=== PATIENT | male | born 1955 | race Caucasian/White ===

== ENCOUNTER 2020-08-04 09:52 | Outpatient (REF) | payer MEDICARE, SELFPAY ==
--- NOTE | ~2020-08-04 | XR_ITS ---
EXAMINATION: XR LUMBOSACRAL SPINE CLINICAL INFORMATION: Low back pain. COMPARISON: None. TECHNIQUE: 3 views of the lumbosacral spine. FINDINGS: There is normal lumbar lordosis. The vertebral heights and alignment is normal. There is loss of L3-L4 and L5-S1 disc heights. The rest of the disc heights are preserved normal. No lytic or sclerotic process seen. XR/XR lumbar spine 2-3V IMPRESSION: Degenerative L3-L4 and L5-S1 disc changes with mild ventral spondylosis. No visible acute fracture or dislocation seen. No lytic process.
[2020-08-04 10:24] LABS: MANUAL DIFF FLAG NO
[2020-08-04 10:27] LABS: Basophils Percent Auto 0.4 % (0-2); Eosinophils Absolute Auto 0.2 X10*3/uL (0.0-0.4); Eosinophils Percent Auto 2.8 % (0-4); Hematocrit 45.2 % (42-52); Hemoglobin 15.6 g/dl (14.0-18.0); Imm Gran Abs Auto 0.06 X10*3/uL (0.00-0.03); Imm Gran Pct Auto 0.7 % (0.0-0.4); Lymphocytes Absolute Auto 1.8 X10*3/uL (1.2-4.9); Lymphocytes Percent Auto 20.9 % (20-40); Mean Corpuscular HGB Conc 34.5 g/dl (31.0-36.0); Mean Corpuscular Hemoglobin 30.2 pg (27.0-33.0); Mean Corpuscular Volume 87.6 fL (80-98); Mean Platelet Volume 9.3 fL (9.4-12.4); Monocytes Absolute Auto 0.5 X10*3/uL (0.1-1.2); Monocytes Percent Auto 5.3 % (2-11); Neutrophils Percent Auto 69.9 % (45-73); Platelet Count 132 X10*3/uL (160-400); Red Blood Count 5.16 X10*6/uL (4.60-5.80); Red Cell Distribution Width 13.2 % (11.0-16.0); White Blood Count 8.5 X10*3/uL (4.8-10.8)
[2020-08-04 10:38] LABS: Estimated Average Glucose 200 mg/dL; Hemoglobin A1c % 8.6 %
[2020-08-04 10:49] LABS: Alanine Aminotransferase 35 U/L (0-40); Albumin Level 4.4 g/dL (3.5-5.0); Alkaline Phosphatase 81 U/L (39-117); Anion Gap 13 (12-20); Aspartate Amino Transferase 28 U/L (5-37); Blood Urea Nitrogen 19 mg/dL (9-16); C Reactive Protein 0.04 mg/dL (< or = 0.50); Calcium 9.5 mg/dL (8.4-10.2); Carbon Dioxide 28 mmol/L (22-29); Chloride 98 mmol/L (96-108); Estimated Glomerular Filt Rate > 60; Glucose Random 263 mg/dL (60-115); Potassium 3.7 mmol/L (3.3-5.1); Sodium 135 mmol/L (135-145); Total Protein 6.9 g/dL (6.5-8.0)
[2020-08-04 10:50] LABS: Creatinine Urine 90.52 mg/dL; Microalbum/Creatinine Ratio Ur 144.7 ug/mg cr
== END 2020-08-04 09:53 | disposition home or self-care (01) ==
LOC: HO.LAB 09:52
PROVIDERS: PCP Internal Medicine; Visit Provider Internal Medicine
DX: E11.9 Type 2 diabetes mellitus without complications (principal); I10 Essential (primary) hypertension; M54.5 Low back pain
CPT/HCPCS: 36415; 72100; 80053; 82043; 83036; 85025; 86140

== ENCOUNTER 2020-08-24 11:10 | Outpatient (REF) | payer MEDICARE, SELFPAY ==
--- NOTE | ~2020-08-24 | XR_ITS ---
EXAMINATION: XR FOOT, RIGHT CLINICAL INFORMATION: Pain COMPARISON: None TECHNIQUE: AP, lateral, and oblique views of the right foot. FINDINGS: Bone alignment is normal. No fracture or dislocation is seen. Joint spaces are normal. There are calcaneal spurs. There is mild soft tissue arterial calcification. XR/XR foot RT min 3V IMPRESSION: Calcaneal spurs. Mild soft tissue arterial calcification.
== END 2020-08-24 11:11 | disposition home or self-care (01) ==
LOC: HO.XRAY 11:10
PROVIDERS: PCP Internal Medicine; Visit Provider Internal Medicine
DX: M79.671 Pain in right foot (principal)
CPT/HCPCS: 73630

== ENCOUNTER 2020-10-01 10:00 | Outpatient (REF) | payer MEDICARE, SELFPAY ==
[2020-10-01 11:40] LABS: Alanine Aminotransferase 40 U/L (0-40); Albumin Level 4.4 g/dL (3.5-5.0); Alkaline Phosphatase 92 U/L (39-117); Anion Gap 16 (12-20); Aspartate Amino Transferase 32 U/L (5-37); Bilirubin Total 0.9 mg/dL (0.0-1.0); Blood Urea Nitrogen 20 mg/dL (9-16); Calcium 9.9 mg/dL (8.4-10.2); Carbon Dioxide 28 mmol/L (22-29); Chloride 102 mmol/L (96-108); Estimated Glomerular Filt Rate > 60; Glucose Random 189 mg/dL (60-115); Potassium 3.8 mmol/L (3.3-5.1); Sodium 142 mmol/L (135-145)
[2020-10-01 11:51] LABS: Estimated Average Glucose 180 mg/dL; Hemoglobin A1c % 7.9 %
[2020-10-01 11:58] LABS: Vitamin B12 460 pg/mL (200-900)
[2020-10-01 12:04] LABS: Free T4 (Free Thyroxine) 0.84 ng/dL (0.71-1.85); Thyroid Stimulating Hormone 0.41 uIU/mL (0.32-4.0); Vitamin D 25-OH Total 27.4 ng/mL (>30)
== END 2020-10-01 10:01 | disposition home or self-care (01) ==
LOC: HO.LAB 10:00
PROVIDERS: PCP Internal Medicine; Visit Provider Internal Medicine
DX: E11.9 Type 2 diabetes mellitus without complications (principal); I10 Essential (primary) hypertension; R25.1 Tremor, unspecified; D69.6 Thrombocytopenia, unspecified; M79.671 Pain in right foot
CPT/HCPCS: 36415; 80053; 82306; 82607; 83036; 84439; 84443

== ENCOUNTER 2021-01-20 08:07 | Outpatient (REF) | payer MEDICARE, SELFPAY ==
[2021-01-20 08:54] LABS: MANUAL DIFF FLAG NO
[2021-01-20 09:06] LABS: Basophils Percent Auto 0.4 % (0-2); Eosinophils Absolute Auto 0.4 X10*3/uL (0.0-0.4); Eosinophils Percent Auto 4.7 % (0-4); Hematocrit 42.9 % (42-52); Hemoglobin 14.8 g/dl (14.0-18.0); Imm Gran Abs Auto 0.04 X10*3/uL (0.00-0.03); Imm Gran Pct Auto 0.5 % (0.0-0.4); Lymphocytes Absolute Auto 1.7 X10*3/uL (1.2-4.9); Lymphocytes Percent Auto 21.1 % (20-40); Mean Corpuscular HGB Conc 34.5 g/dl (31.0-36.0); Mean Corpuscular Volume 86.8 fL (80-98); Mean Platelet Volume 9.4 fL (9.4-12.4); Monocytes Absolute Auto 0.5 X10*3/uL (0.1-1.2); Monocytes Percent Auto 5.8 % (2-11); Neutrophils Absolute Auto 5.3 X10*3/uL (2.0-8.3); Neutrophils Percent Auto 67.5 % (45-73); Platelet Count 122 X10*3/uL (160-400); Red Blood Count 4.94 X10*6/uL (4.60-5.80); Red Cell Distribution Width 13.3 % (11.0-16.0); White Blood Count 7.9 X10*3/uL (4.8-10.8)
[2021-01-20 09:25] LABS: Estimated Average Glucose 189 mg/dL; Hemoglobin A1c % 8.2 %
[2021-01-20 09:30] LABS: Alanine Aminotransferase 43 U/L (0-40); Albumin Level 4.3 g/dL (3.5-5.0); Alkaline Phosphatase 77 U/L (39-117); Anion Gap 13 (12-20); Aspartate Amino Transferase 39 U/L (5-37); Bilirubin Total 1.1 mg/dL (0.0-1.0); Blood Urea Nitrogen 15 mg/dL (9-16); Calcium 9.3 mg/dL (8.4-10.2); Carbon Dioxide 28 mmol/L (22-29); Chloride 104 mmol/L (96-108); Cholesterol 128 mg/dL; Estimated Glomerular Filt Rate > 60; Glucose Fasting 170 mg/dL (60-99); HDL Cholesterol 30 mg/dL; LDL Cholesterol Calculated 63 mg/dl; Potassium 3.6 mmol/L (3.3-5.1); Sodium 141 mmol/L (135-145); Triglycerides 176 mg/dL
[2021-01-20 09:50] LABS: Prostate Specific Antigen 1.12 ng/mL (<0.05-4.0)
[2021-01-20 10:50] LABS: Glucose Urine UA NEG (NEG); Leukocyte Esterase Urine TRACE (NEG); Nitrite Urine NEG (NEG); PH 6.5 (5.0-8.0); Specific Gravity - Urine 1.015 (1.005-1.025); Urine Blood TRACE (NEG); Urine Ketones NEG (NEG); Urine Protein 1+ MG/DL (NEG-TRACE)
[2021-01-20 10:53] LABS: Appearance Urine CLEAR; Color Urine YELLOW
[2021-01-20 11:23] LABS: Microalbum/Creatinine Ratio Ur 240.3 ug/mg cr; RBC Urine 0-2 /HPF (0)
[2021-01-20 11:24] LABS: Mucus Urine 1+ /LPF
== END 2021-01-20 08:08 | disposition home or self-care (01) ==
LOC: HO.LAB 08:07
PROVIDERS: PCP Internal Medicine; Visit Provider Internal Medicine
DX: I25.10 Atherosclerotic heart disease of native coronary artery without angina pectoris (principal); E11.9 Type 2 diabetes mellitus without complications; I10 Essential (primary) hypertension; E78.00 Pure hypercholesterolemia, unspecified; Z12.5 Encounter for screening for malignant neoplasm of prostate
CPT/HCPCS: 36415; 80053; 80061; 81001; 82043; 83036; 84153; 85025

== ENCOUNTER 2021-07-12 09:39 | Outpatient (REF) | payer MEDICARE, SELFPAY ==
[2021-07-12 10:45] LABS: Alanine Aminotransferase 41 U/L (0-40); Albumin Level 4.2 g/dL (3.5-5.0); Alkaline Phosphatase 95 U/L (39-117); Anion Gap 14 (12-20); Aspartate Amino Transferase 30 U/L (5-37); Bilirubin Total 0.9 mg/dL (0.0-1.0); Blood Urea Nitrogen 16 mg/dL (9-16); Calcium 9.5 mg/dL (8.4-10.2); Carbon Dioxide 29 mmol/L (22-29); Chloride 101 mmol/L (96-108); Estimated Glomerular Filt Rate > 60; Glucose Random 219 mg/dL (60-115); Potassium 3.9 mmol/L (3.3-5.1); Sodium 140 mmol/L (135-145); Total Protein 6.9 g/dL (6.5-8.0)
[2021-07-12 10:49] LABS: Estimated Average Glucose 203 mg/dL; Hemoglobin A1c % 8.7 %
== END 2021-07-12 09:40 | disposition home or self-care (01) ==
LOC: HO.LAB 09:39
PROVIDERS: PCP Internal Medicine; Visit Provider Internal Medicine
DX: I10 Essential (primary) hypertension (principal); E11.9 Type 2 diabetes mellitus without complications
CPT/HCPCS: 36415; 80053; 83036

== ENCOUNTER 2021-10-11 10:40 | Outpatient (REF) | payer MEDICARE, SELFPAY ==
[2021-10-11 11:04] LABS: MANUAL DIFF FLAG NO
[2021-10-11 11:35] LABS: Basophils Percent Auto 0.5 % (0-2); Eosinophils Absolute Auto 0.3 X10*3/uL (0.0-0.4); Hematocrit 43.1 % (42.0-52.0); Hemoglobin 14.9 g/dl (14.0-18.0); Imm Gran Abs Auto 0.07 X10*3/uL (0.00-0.03); Imm Gran Pct Auto 0.8 % (0.0-0.4); Lymphocytes Absolute Auto 1.8 X10*3/uL (1.2-4.9); Lymphocytes Percent Auto 21.6 % (20-40); Mean Corpuscular HGB Conc 34.6 g/dl (31.0-36.0); Mean Corpuscular Volume 86.7 fL (80.0-98.0); Mean Platelet Volume 9.5 fL (9.4-12.4); Monocytes Absolute Auto 0.5 X10*3/uL (0.1-1.2); Monocytes Percent Auto 6.1 % (2-11); Neutrophils Absolute Auto 5.7 x10*3/uL (2.0-8.3); Platelet Count 126 X10*3/uL (160-400); Red Blood Count 4.97 X10*6/uL (4.60-5.80); Red Cell Distribution Width 13.2 % (11.0-16.0); White Blood Count 8.3 X10*3/uL (4.8-10.8)
[2021-10-11 11:59] LABS: Estimated Average Glucose 217 mg/dL; Hemoglobin A1c % 9.2 %
[2021-10-11 12:16] LABS: Alanine Aminotransferase 51 U/L (0-40); Albumin Level 4.1 g/dL (3.5-5.0); Alkaline Phosphatase 87 U/L (39-117); Anion Gap 14 (12-20); Aspartate Amino Transferase 38 U/L (5-37); Bilirubin Total 0.9 mg/dL (0.0-1.0); Blood Urea Nitrogen 14 mg/dL (9-16); Calcium 9.6 mg/dL (8.4-10.2); Carbon Dioxide 26 mmol/L (22-29); Chloride 103 mmol/L (96-108); Estimated Glomerular Filt Rate > 60; Glucose Random 197 mg/dL (60-115); Potassium 3.7 mmol/L (3.3-5.1); Sodium 139 mmol/L (135-145); Total Protein 6.9 g/dL (6.5-8.0)
[2021-10-11 12:40] LABS: Appearance Urine CLEAR; Color Urine YELLOW; Glucose Urine UA NEG (NEG); Leukocyte Esterase Urine NEG (NEG); Nitrite Urine NEG (NEG); Specific Gravity - Urine 1.025 (1.005-1.025); Urine Blood TRACE (NEG); Urine Ketones NEG (NEG); Urine Protein TRACE MG/DL (NEG-TRACE)
[2021-10-11 12:51] LABS: Squamous Epithelial Cell Urine TRACE /LPF
[2021-10-11 13:35] LABS: Creatinine Urine 72.92 mg/dL; Microalbum/Creatinine Ratio Ur 296.2 ug/mg cr
== END 2021-10-11 10:41 | disposition home or self-care (01) ==
LOC: HO.LAB 10:40
PROVIDERS: PCP Internal Medicine; Visit Provider Internal Medicine
DX: E11.9 Type 2 diabetes mellitus without complications (principal); I10 Essential (primary) hypertension; E55.9 Vitamin D deficiency, unspecified
CPT/HCPCS: 36415; 80053; 81001; 82043; 82306; 83036; 85025

== ENCOUNTER 2022-02-01 10:07 | Outpatient (REF) | payer MEDICARE, SELFPAY ==
[2022-02-01 10:30] LABS: MANUAL DIFF FLAG NO
[2022-02-01 10:44] LABS: Basophils Percent Auto 0.5 % (0-2); Eosinophils Absolute Auto 0.4 X10*3/uL (0.0-0.4); Eosinophils Percent Auto 4.6 % (0-4); Hematocrit 41.3 % (42.0-52.0); Hemoglobin 14.6 g/dl (14.0-18.0); Imm Gran Abs Auto 0.05 X10*3/uL (0.00-0.03); Imm Gran Pct Auto 0.6 % (0.0-0.4); Lymphocytes Absolute Auto 1.7 X10*3/uL (1.2-4.9); Lymphocytes Percent Auto 20.6 % (20-40); Mean Corpuscular HGB Conc 35.4 g/dl (31.0-36.0); Mean Corpuscular Hemoglobin 30.4 pg (27.0-33.0); Mean Platelet Volume 9.5 fL (9.4-12.4); Monocytes Absolute Auto 0.4 X10*3/uL (0.1-1.2); Monocytes Percent Auto 5.2 % (2-11); Neutrophils Absolute Auto 5.7 x10*3/uL (2.0-8.3); Neutrophils Percent Auto 68.5 % (45-73); Platelet Count 141 X10*3/uL (160-400); Red Cell Distribution Width 13.2 % (11.0-16.0); White Blood Count 8.3 X10*3/uL (4.8-10.8)
[2022-02-01 10:46] LABS: Estimated Average Glucose 183 mg/dL
[2022-02-01 10:59] LABS: Alanine Aminotransferase 38 U/L (0-40); Albumin Level 4.2 g/dL (3.5-5.0); Alkaline Phosphatase 76 U/L (39-117); Anion Gap 18 (12-20); Aspartate Amino Transferase 33 U/L (5-37); Blood Urea Nitrogen 12 mg/dL (9-16); Calcium 9.5 mg/dL (8.4-10.2); Carbon Dioxide 24 mmol/L (22-29); Chloride 103 mmol/L (96-108); Estimated Glomerular Filt Rate > 60; Glucose Random 196 mg/dL (60-115); Potassium 3.9 mmol/L (3.3-5.1); Sodium 141 mmol/L (135-145); Total Protein 6.7 g/dL (6.5-8.0)
[2022-02-01 15:06] LABS: Creatinine Urine 61.12 mg/dL; Microalbum/Creatinine Ratio Ur 219.2 ug/mg cr
== END 2022-02-01 10:08 | disposition home or self-care (01) ==
LOC: HO.10HDL 10:07
PROVIDERS: Visit Provider Internal Medicine
DX: E11.9 Type 2 diabetes mellitus without complications (principal); I10 Essential (primary) hypertension; R79.89 Other specified abnormal findings of blood chemistry; E55.9 Vitamin D deficiency, unspecified
CPT/HCPCS: 36415; 80053; 82043; 83036; 85025

== ENCOUNTER 2022-07-19 08:03 | Outpatient (REF) | payer MEDICARE, SELFPAY ==
[2022-07-19 10:33] LABS: MANUAL DIFF FLAG NO
[2022-07-19 10:52] LABS: Basophils Absolute Auto 0.1 X10*3/uL (0.0-0.2); Basophils Percent Auto 0.7 % (0-2); Eosinophils Absolute Auto 0.3 X10*3/uL (0.0-0.4); Eosinophils Percent Auto 4.1 % (0-4); Hematocrit 43.2 % (42.0-52.0); Hemoglobin 14.7 g/dl (14.0-18.0); Imm Gran Abs Auto 0.06 X10*3/uL (0.00-0.03); Imm Gran Pct Auto 0.8 % (0.0-0.4); Lymphocytes Absolute Auto 1.8 X10*3/uL (1.2-4.9); Lymphocytes Percent Auto 25.4 % (20-40); Mean Corpuscular Hemoglobin 29.3 pg (27.0-33.0); Mean Corpuscular Volume 86.2 fL (80.0-98.0); Mean Platelet Volume 9.4 fL (9.4-12.4); Monocytes Absolute Auto 0.5 X10*3/uL (0.1-1.2); Monocytes Percent Auto 6.5 % (2-11); Neutrophils Absolute Auto 4.5 x10*3/uL (2.0-8.3); Neutrophils Percent Auto 62.5 % (45-73); Platelet Count 131 X10*3/uL (160-400); Red Blood Count 5.01 X10*6/uL (4.60-5.80); Red Cell Distribution Width 13.2 % (11.0-16.0); White Blood Count 7.2 X10*3/uL (4.8-10.8)
[2022-07-19 10:58] LABS: Estimated Average Glucose 200 mg/dL; Hemoglobin A1c % 8.6 %
[2022-07-19 11:37] LABS: Alanine Aminotransferase 45 U/L (0-40); Albumin Level 4.1 g/dL (3.5-5.0); Alkaline Phosphatase 83 U/L (39-117); Anion Gap 16 (12-20); Aspartate Amino Transferase 29 U/L (5-37); Blood Urea Nitrogen 21 mg/dL (9-16); Calcium 9.1 mg/dL (8.4-10.2); Carbon Dioxide 25 mmol/L (22-29); Chloride 105 mmol/L (96-108); Cholesterol 130 mg/dL; Estimated Glomerular Filt Rate > 60; Glucose Fasting 244 mg/dL (60-99); HDL Cholesterol 30 mg/dL; LDL Cholesterol Calculated 49 mg/dl; Potassium 3.7 mmol/L (3.3-5.1); Sodium 142 mmol/L (135-145); Total Protein 6.4 g/dL (6.5-8.0); Triglycerides 257 mg/dL
[2022-07-19 11:44] LABS: Prostate Specific Antigen Scr 1.22 ng/mL (<0.05-4.0); Vitamin D 25-OH Total 27.3 ng/mL (>30)
[2022-07-19 12:14] LABS: Creatinine Urine 104.16 mg/dL; Microalbum/Creatinine Ratio Ur 129.6 ug/mg cr
== END 2022-07-19 08:04 | disposition home or self-care (01) ==
LOC: HO.10HDL 08:03
PROVIDERS: Visit Provider Internal Medicine
DX: Z00.00 Encounter for general adult medical examination without abnormal findings (principal); E11.9 Type 2 diabetes mellitus without complications; E55.9 Vitamin D deficiency, unspecified; Z12.5 Encounter for screening for malignant neoplasm of prostate
CPT/HCPCS: 36415; 80053; 80061; 82043; 82306; 83036; 84153; 85025

== ENCOUNTER 2022-10-31 08:35 | Outpatient (REF) | payer MEDICARE, SELFPAY ==
[2022-10-31 10:44] LABS: MANUAL DIFF FLAG NO
[2022-10-31 10:52] LABS: Basophils Percent Auto 0.5 % (0-2); Eosinophils Absolute Auto 0.4 X10*3/uL (0.0-0.4); Eosinophils Percent Auto 4.3 % (0-4); Hemoglobin 15.1 g/dl (14.0-18.0); Imm Gran Abs Auto 0.04 X10*3/uL (0.00-0.03); Imm Gran Pct Auto 0.5 % (0.0-0.4); Lymphocytes Absolute Auto 1.8 X10*3/uL (1.2-4.9); Mean Corpuscular HGB Conc 34.3 g/dl (31.0-36.0); Mean Corpuscular Hemoglobin 30.4 pg (27.0-33.0); Mean Corpuscular Volume 88.5 fL (80.0-98.0); Mean Platelet Volume 9.7 fL (9.4-12.4); Monocytes Absolute Auto 0.4 X10*3/uL (0.1-1.2); Monocytes Percent Auto 5.3 % (2-11); Neutrophils Absolute Auto 5.5 x10*3/uL (2.0-8.3); Neutrophils Percent Auto 67.4 % (45-73); Platelet Count 128 X10*3/uL (160-400); Red Blood Count 4.97 X10*6/uL (4.60-5.80); Red Cell Distribution Width 13.3 % (11.0-16.0); White Blood Count 8.2 X10*3/uL (4.8-10.8)
[2022-10-31 11:01] LABS: Estimated Average Glucose 154 mg/dL
[2022-10-31 11:02] LABS: Alanine Aminotransferase 34 U/L (0-40); Albumin Level 4.1 g/dL (3.5-5.0); Alkaline Phosphatase 74 U/L (39-117); Anion Gap 14 (12-20); Aspartate Amino Transferase 24 U/L (5-37); Bilirubin Total 1.1 mg/dL (0.0-1.0); Blood Urea Nitrogen 16 mg/dL (9-16); Calcium 9.5 mg/dL (8.4-10.2); Carbon Dioxide 26 mmol/L (22-29); Chloride 104 mmol/L (96-108); Estimated Glomerular Filt Rate > 60; Glucose Random 172 mg/dL (60-115); Potassium 3.6 mmol/L (3.3-5.1); Sodium 140 mmol/L (135-145); Total Protein 6.9 g/dL (6.5-8.0)
== END 2022-10-31 08:36 | disposition home or self-care (01) ==
LOC: HO.10HDL 08:35
PROVIDERS: Visit Provider Internal Medicine
DX: E11.9 Type 2 diabetes mellitus without complications (principal); I10 Essential (primary) hypertension; G47.33 Obstructive sleep apnea (adult) (pediatric)
CPT/HCPCS: 36415; 80053; 83036; 85025

== ENCOUNTER 2023-02-15 09:34 | Outpatient (REF) | payer MEDICARE, SELFPAY ==
[2023-02-15 11:25] LABS: Estimated Average Glucose 160 mg/dL; Hemoglobin A1c % 7.2 % (<6.0)
[2023-02-15 11:27] LABS: Alanine Aminotransferase 31 U/L (0-40); Albumin Level 4.3 g/dL (3.5-5.0); Alkaline Phosphatase 66 U/L (39-117); Anion Gap 14 (12-20); Aspartate Amino Transferase 25 U/L (5-37); Blood Urea Nitrogen 16 mg/dL (9-16); Calcium 9.8 mg/dL (8.4-10.2); Carbon Dioxide 28 mmol/L (22-29); Chloride 105 mmol/L (96-108); Estimated Glomerular Filt Rate > 60; Glucose Random 144 mg/dL (60-115); Potassium 3.5 mmol/L (3.3-5.1); Sodium 143 mmol/L (135-145); Total Protein 6.9 g/dL (6.5-8.0)
[2023-02-15 11:29] LABS: Creatinine Urine 99.48 mg/dL; Microalbum/Creatinine Ratio Ur 105.5 ug/mg cr (<30)
[2023-02-15 11:31] LABS: Vitamin D 25-OH Total 61.9 ng/mL (>30)
== END 2023-02-15 09:35 | disposition home or self-care (01) ==
LOC: HO.10HDL 09:34
PROVIDERS: Visit Provider Internal Medicine
DX: E55.9 Vitamin D deficiency, unspecified (principal); G47.33 Obstructive sleep apnea (adult) (pediatric); I25.10 Atherosclerotic heart disease of native coronary artery without angina pectoris; I10 Essential (primary) hypertension; E11.9 Type 2 diabetes mellitus without complications; Z79.4 Long term (current) use of insulin
CPT/HCPCS: 36415; 80053; 82043; 82306; 82570; 83036

== ENCOUNTER 2023-08-07 08:07 | Outpatient (REF) | payer MEDICARE, SELFPAY ==
[2023-08-07 11:18] LABS: Appearance Urine Clear; Color Urine Yellow; Glucose Urine UA Negative (Negative); Leukocyte Esterase Urine Moderate (2+) (Negative); Nitrite Urine Negative (Negative); PH 6.5 (5.0-9.0); Specific Gravity - Urine 1.025 (1.005-1.025); UMIC TRIGGER UA YES; Urine Blood Negative (Negative); Urine Ketones Negative (Negative); Urine Protein 30 (1+) mg/dL (Neg-Trace)
[2023-08-07 11:19] LABS: MANUAL DIFF FLAG NO
[2023-08-07 11:24] LABS: Bacteria Urine None Seen (None Seen); Basophils Percent Auto 0.6 % (0-2); Eosinophils Absolute Auto 0.3 X10*3/uL (0.0-0.4); Eosinophils Percent Auto 3.8 % (0-4); Hematocrit 41.6 % (42.0-52.0); Hemoglobin 14.4 g/dl (14.0-18.0); Imm Gran Abs Auto 0.06 X10*3/uL (0.00-0.03); Imm Gran Pct Auto 0.8 % (0.0-0.4); Lymphocytes Absolute Auto 1.7 X10*3/uL (1.2-4.9); Lymphocytes Percent Auto 24.4 % (20-40); Mean Corpuscular HGB Conc 34.6 g/dl (31.0-36.0); Mean Corpuscular Hemoglobin 29.7 pg (27.0-33.0); Mean Corpuscular Volume 85.8 fL (80.0-98.0); Mean Platelet Volume 9.6 fL (9.4-12.4); Monocytes Absolute Auto 0.5 X10*3/uL (0.1-1.2); Monocytes Percent Auto 7.3 % (2-11); Neutrophils Absolute Auto 4.5 x10*3/uL (2.0-8.3); Neutrophils Percent Auto 63.1 % (45-73); Platelet Count 129 X10*3/uL (160-400); RBC Urine 0-2 /HPF (0-2); Red Blood Count 4.85 X10*6/uL (4.60-5.80); Red Cell Distribution Width 13.2 % (11.0-16.0); Squamous Epithelial Cell Urine 0-2 /HPF (0-2); WBC Urine >50 /HPF (0-5); White Blood Count 7.1 X10*3/uL (4.8-10.8)
[2023-08-07 11:36] LABS: Estimated Average Glucose 151 mg/dL; Hemoglobin A1c % 6.9 % (<6.0)
[2023-08-07 12:15] LABS: Prostate Specific Antigen Scr 1.75 ng/mL (<0.05-4.0)
[2023-08-07 12:26] LABS: Creatinine Urine 213.78 mg/dL; Microalbum/Creatinine Ratio Ur 91.2 ug/mg cr (<30)
[2023-08-07 12:31] LABS: Alanine Aminotransferase 19 U/L (0-40); Albumin Level 4.3 g/dL (3.5-5.0); Alkaline Phosphatase 64 U/L (39-117); Anion Gap 13 (12-20); Aspartate Amino Transferase 18 U/L (5-37); Bilirubin Total 0.8 mg/dL (0.0-1.0); Blood Urea Nitrogen 20 mg/dL (9-16); Calcium 9.8 mg/dL (8.4-10.2); Carbon Dioxide 30 mmol/L (22-29); Chloride 101 mmol/L (96-108); Cholesterol 125 mg/dL (<200); Estimated Glomerular Filt Rate > 60; Glucose Fasting 137 mg/dL (60-99); HDL Cholesterol 26 mg/dL (>40); LDL Cholesterol Calculated 62 mg/dL (<100); Potassium 3.6 mmol/L (3.3-5.1); Sodium 140 mmol/L (135-145); Total Protein 7.1 g/dL (6.5-8.0); Triglycerides 189 mg/dL (<150)
== END 2023-08-07 08:08 | disposition home or self-care (01) ==
LOC: HO.10HDL 08:07
PROVIDERS: Visit Provider Internal Medicine
DX: Z12.5 Encounter for screening for malignant neoplasm of prostate (principal); I25.10 Atherosclerotic heart disease of native coronary artery without angina pectoris; I10 Essential (primary) hypertension; E11.9 Type 2 diabetes mellitus without complications; E78.00 Pure hypercholesterolemia, unspecified; R35.1 Nocturia
CPT/HCPCS: 36415; 80053; 80061; 81001; 81003; 82043; 82570; 83036; 84153; 85025

== ENCOUNTER 2023-09-23 16:17 | Emergency (ER) | payer MEDICARE, SELFPAY ==
[2023-09-23] VITALS (13 sets, daily range): BP systolic 114–223; BP diastolic 58–142; PULSE 60–90; RESP 16–36; TEMP -17.7–37.1; O2SAT 87–95; BMI 38.1; BMI 37.5
--- NOTE | ~2023-09-23 | CT_ITS ---
EXAMINATION: CT ANGIOGRAM OF THE CHEST WITH AND WITHOUT CONTRAST (CT PULMONARY ANGIOGRAM FOR PE) CLINICAL INFORMATION: Reason for Exam hypoxia/alveoloar hge COMPARISON: Chest radiograph 09/23/2023 TECHNIQUE: Prior to contrast administration, noncontrast localization images were obtained. Subsequently, multidetector volumetric imaging was performed from the thoracic inlet to below the diaphragms following the administration of 80 mL Omnipaque 350 intravenous contrast. No contrast reaction reported Sagittal, coronal, and MIP oblique sagittal reformatted images were obtained on the CT workstation, uploaded to PACS, and reviewed. This CT examination was performed using dose optimization techniques as appropriate, variously including the following: *Automated exposure control *Adjustment of mA and/or kV according to patient size (this includes techniques or standardized protocols for targeted exams where dose is matched to indication/reason for exam; i.e. extremities or head) *Use of iterative reconstruction technique Total exam dose-length product 549 mGy-cm FINDINGS: QUALITY OF STUDY/CONTRAST BOLUS: Satisfactory. Marked respiratory artifact is present, especially at the lung bases degrading the diagnostic detail PULMONARY ARTERIES: No central or large segmental pulmonary emboli. THORACIC AORTA: No aneurysm. LUNG: Dependent and perihilar increased interstitial markings are present with bibasilar atelectasis. No suspicious lung masses are seen. PLEURA: Tiny right effusion and trace left effusion. MEDIASTINUM: There is cardiomegaly. No pericardial effusion. No hilar or mediastinal lymphadenopathy. No evidence of septal bowing or right heart strain. CORONARY ARTERY CALCIFICATION: Moderate calcium is present along with probable coronary stents. CHEST WALL/AXILLA: No axillary or internal mammary lymphadenopathy. OSSEOUS STRUCTURES: No acute or suspicious osseous abnormality. UPPER ABDOMEN: Unremarkable. No reflux of contrast into the hepatic veins to suggest elevated right heart pressures. CT/CT angio chest PE protocol IMPRESSION: 1. No evidence of pulmonary emboli. 2. Cardiomegaly increased interstitial markings with tiny right and trace left pleural effusions. Findings suggest CHF. Superimposed pneumonia cannot be entirely excluded. VTE: negative.
--- NOTE | ~2023-09-23 | XR_ITS ---
EXAMINATION: XR CHEST CLINICAL INFORMATION: Chest COMPARISON: None available. TECHNIQUE: Frontal view of the chest was obtained. FINDINGS: There are patchy airspace disease seen bilaterally more prominent in the lower lobes, most likely due to infectious to large airspace disease. There is no pleural effusion. Cardiomediastinal silhouette is normal. XR/XR chest 1V IMPRESSION: Multifocal pneumonia
--- NOTE | 2023-09-23 16:24 | ECG_ITS ---
Test Reason : CP Blood Pressure : / mmHG Vent. Rate : 083 BPM Atrial Rate : 083 BPM P-R Int : 234 ms QRS Dur : 148 ms QT Int : 456 ms P-R-T Axes : 000 -12 188 degrees QTc Int : 535 ms Sinus rhythm with 1st degree A-V block with Fusion complexes Right bundle branch block Marked ST abnormality, possible anterior subendocardial injury Abnormal ECG No previous ECGs available Referred By: Generic ED Physician Electronically Signed By:ARSALAN KESSLER MD
--- NOTE | 2023-09-23 16:30 | MHC.EDTECH ---
Waiting for call back from [facility]
--- NOTE | 2023-09-23 16:31 | ED.CHESTPAIN ---
HPI - Chest Pain General Chief Complaint: Dyspnea Stated Complaint: respiratory distress, unresponsive, cpap no change Time Seen by Provider: 09/23/23 16:26 Source: patient and EMS Mode of arrival: EMS Limitations: no limitations History of Present Illness HPI narrative: Patient with history of hypertension coronary artery disease status post stent placement 2011, hypertension, high cholesterol, diabetes, sleep apnea on CPAP was admitted in good health around 15:00 start coughing with severe shortness of breath with chest discomfort coughed several times fresh blood in the sputum became unresponsive was saturating 70% at room air placed on CPAP improved to 87% became more responsive oriented to self and place reporting chest tightness POC on arrival was 292 patient is not on any anticoagulants no fever no chills patient does have leg edema for some time Related Data Allergies Allergy/AdvReac Type Severity Reaction Status Date / Time No Known Allergies Allergy Verified 09/23/23 16:28 [No Known Allergies*] Review of Systems Review of Systems: Yes all other systems are reviewed and are negative PMFSH Past Medical History Medical History Sleep apnea Hyperlipemia HTN (hypertension) Diabetes mellitus CAD (coronary artery disease) Surgical History H/O heart artery stent Social History Social History Smoked in Last 30 Days: No Use of substances other than those prescribed or required for medical reasons: No Advance Directives: No Advance Directives Information Provided: No Physical Exam Vital Signs: Vital Signs: Last Vital Signs Temp 0 F L 09/23/23 23:41 Pulse 90 09/23/23 23:41 Resp 24 H 09/23/23 23:41 BP 159/80 H 09/23/23 23:41 Pulse Ox 94 09/23/23 23:41 O2 Del Method Nasal Cannula 09/23/23 23:41 O2 Flow Rate 4 09/23/23 23:41 Oxygen Flow Rate 55 09/23/23 16:22 BMI result Body Mass Index 37.5 Appearance: Alert. Oriented X2-3. In moderate respiratory distress on high-flow Eyes: No pallor or icterus ENT: Pharynx normal. Oral Mucosa moist Neck: Normal inspection. Neck supple. CVS: Normal heart rate and rhythm. Pulses normal. Respiratory: Moderate respiratory distress. Equal air entry bilateral, bilateral conducted sounds Abdomen: Soft and nontender. Bowel sounds are present, no mass palpable, no CVA tenderness Skin: Skin warm and dry. Normal skin color. Normal skin turgor. Extremities:++ lower extremity edema. No calf tenderness Neuro: Oriented X . No motor deficit. Medications Administered Generic Name Dose Route Start Last Admin Trade Name Freq PRN Reason Stop Dose Admin Heparin Sodium/Sodium Chloride 25,000 unit in 250 mls @ 0 mls/hr 09/23/23 21:45 09/23/23 22:10 Heparin Sodium,Porcine/1/2ns IVCONT 8.68 units/kg/hr .Q0M TERRI 10 mls/hr Administration Protocol Per Protocol Nitroglycerin 0.4 mg 09/23/23 16:32 09/23/23 16:37 Nitroglycerin 0.4 Mg Tab.Subl SUBLINGUAL 0.4 mg [id number] PRN Administration Chest Pain Discontinued Medications Generic Name Dose Route Start Last Admin Trade Name Freq PRN Reason Stop Dose Admin Furosemide 40 mg 09/23/23 16:27 09/23/23 16:33 Furosemide 40 Mg/4 Ml Vial IVPUSH 09/23/23 16:28 40 mg ONCE ONE Administration Protocol Heparin Sodium (Porcine) 5,000 unit 09/23/23 21:28 09/23/23 22:15 Heparin Sodium,Porcine 5,000 Unit/Ml Vial IVPUSH 09/23/23 21:29 5,000 unit ONCE ONE Administration Piperacillin Sod/Tazobactam 50 mls @ 100 mls/hr 09/23/23 19:41 09/23/23 21:42 Sod 3.375 gm/ Sodium Chloride IV 09/23/23 20:10 Infused ONCE ONE Infusion Iohexol 85 ml 09/23/23 18:39 09/23/23 18:39 Iohexol 350 Mg/Ml 100 Ml Infus..Btl IV 09/23/23 18:40 85 ml ONCE ONE Administration Labetalol HCl 20 mg 09/23/23 16:41 09/23/23 16:46 Labetalol Hcl 100 Mg/20 Ml Vial IVPUSH 09/23/23 16:42 20 mg ONCE ONE Administration Ondansetron HCl 4 mg 09/23/23 16:32 09/23/23 16:38 Ondansetron Hcl 4 Mg/2 Ml Vial IVPUSH 09/23/23 16:33 4 mg ONCE ONE Administration Ondansetron HCl 4 mg 09/23/23 17:50 09/23/23 17:53 Ondansetron Hcl 4 Mg/2 Ml Vial IVPUSH 09/23/23 17:51 4 mg ONCE ONE Administration Prochlorperazine Edisylate 10 mg 09/23/23 18:22 09/23/23 18:26 Prochlorperazine Edisylate 10 Mg/2 Ml Vial IVPUSH 09/23/23 18:23 10 mg ONCE ONE Administration Medical Decision Making Medical Decision Making [facility] Narrative: Patient with hypertension with coronary artery disease status post stent placement comes here for acute shortness of breath with cough with hemoptysis desaturated to 70% with altered sensorium improved after CPAP clinically have a picture of pulmonary edema initial BNP was 47 and troponin was 81.5 repeat troponin in 4 hours is [address] depression in inferior leads and anterior leads on arrival patient's blood pressure was elevated to 223/170 in responded to IV Lasix and labetalol and nitroglycerin, patient denied any chest pain after arrival at this time patient is saturating 93% on 4 L. case discussed with Dr. Reid patient care technician instructor who looked at the cardiogram suspect subendocardial ischemia with acute pulmonary edema requested to transfer to [facility] for possible catheterization in a.m. started on heparin drip patient denies any chest pain blood pressure 171/82 pulse rate 71 Differential Diagnosis Differential Diagnoses: The differential diagnosis associated with the presentation includes Alveolar hemorrhage/COPD/pneumonia/CHF/acute pulmonary edema Consult Healthcare Provider Management of the patient was discussed with: [employer] [facility] Dr. Reid Lab Data [facility] Lab Attestation statement: I reviewed the patient's lab results. 09/23/23 16:32 09/23/23 16:55 Labs: Lab Results 09/23/23 09/23/23 09/23/23 Range/Units 16:22 16:32 16:55 WBC 8.4 (4.8-10.8) X10*3/uL RBC 5.26 (4.60-5.80) X10*6/uL Hgb 15.4 (14.0-18.0) g/dl Hct 46.0 (42.0-52.0) % MCV 87.5 (80.0-98.0) fL MCH 29.3 (27.0-33.0) pg MCHC 33.5 (31.0-36.0) g/dl RDW 13.7 (11.0-16.0) % Plt Count 135 L (160-400) X10*3/uL MPV 10.3 (9.4-12.4) fL Immature Gran % (Auto) 1.3 H (0.0-0.4) % Neut % (Auto) 64.7 (45-73) % Lymph % (Auto) 21.0 (20-40) % Tyrrell % (Auto) 5.0 (2-11) % Eos % (Auto) 7.4 H (0-4) % Baso % (Auto) 0.6 (0-2) % Lymph # (Auto) 1.8 (1.2-4.9) X10*3/uL Tyrrell # (Auto) 0.4 (0.1-1.2) X10*3/uL Eos # (Auto) 0.6 H (0.0-0.4) X10*3/uL Baso # (Auto) 0.1 (0.0-0.2) X10*3/uL Abs Immat Gran (auto) 0.11 H (0.00-0.03) X10*3/uL Absolute Neuts (auto) 5.5 (2.0-8.3) x10*3/uL Absolute Nucleated RBC 0.000 (0.0-0.012) X10*3/uL Nucleated RBC % (auto) 0.0 (0.0-0.2) /100WBC PT 10.5 L (11.1-13.3) SEC INR 0.9 (0.9-1.1) APTT 24.9 L (26.0-36.8) SEC VBG pH (7.32-7.43) VBG pCO2 mmHg VBG pO2 mmHg VBG HCO3 (22-26) mmol/L VBG O2 Saturation % VBG Base Excess mmol/L Sodium 140 (135-145) mmol/L Potassium 3.6 (3.3-5.1) mmol/L Chloride 102 (96-108) mmol/L Carbon Dioxide 25 (22-29) mmol/L Anion Gap 17 (12-20) BUN 23 H (9-16) mg/dL Creatinine 1.16 (0.5-1.4) mg/dL Estim Creat Clear Calc 74.7 Estimated GFR > 60 POC Glucose 292 H (60-115) mg/dL Random Glucose 293 H (60-115) mg/dL Lactic Acid (0.5-2.0) mmol/L Calcium 9.1 D (8.4-10.2) mg/dL Magnesium 1.9 (1.6-2.6) mg/dL Total Bilirubin 0.6 (0.0-1.0) mg/dL AST 33 (5-37) U/L ALT 31 (0-40) U/L Alkaline Phosphatase 66 (39-117) U/L Troponin I High Sens 81.5 H (<3.5-35.0) ng/L B-Natriuretic Peptide 47 (<100) pg/mL Total Protein 7.1 (6.5-8.0) g/dL Albumin 4.0 (3.5-5.0) g/dL Influenza Type A (PCR) (Negative) Influenza Type B (PCR) (Negative) RSV RNA Qual (PCR) (Negative) SARS-CoV-2 RNA (RT-PCR) (Negative) 09/23/23 09/23/23 09/23/23 Range/Units 17:13 17:14 20:18 WBC (4.8-10.8) X10*3/uL RBC (4.60-5.80) X10*6/uL Hgb (14.0-18.0) g/dl Hct (42.0-52.0) % MCV (80.0-98.0) fL MCH (27.0-33.0) pg MCHC (31.0-36.0) g/dl RDW (11.0-16.0) % Plt Count (160-400) X10*3/uL MPV (9.4-12.4) fL Immature Gran % (Auto) (0.0-0.4) % Neut % (Auto) (45-73) % Lymph % (Auto) (20-40) % Tyrrell % (Auto) (2-11) % Eos % (Auto) (0-4) % Baso % (Auto) (0-2) % Lymph # (Auto) (1.2-4.9) X10*3/uL Tyrrell # (Auto) (0.1-1.2) X10*3/uL Eos # (Auto) (0.0-0.4) X10*3/uL Baso # (Auto) (0.0-0.2) X10*3/uL Abs Immat Gran (auto) (0.00-0.03) X10*3/uL Absolute Neuts (auto) (2.0-8.3) x10*3/uL Absolute Nucleated RBC (0.0-0.012) X10*3/uL Nucleated RBC % (auto) (0.0-0.2) /100WBC PT (11.1-13.3) SEC INR (0.9-1.1) APTT (26.0-36.8) SEC VBG pH 7.41 (7.32-7.43) VBG pCO2 40 mmHg VBG pO2 66 mmHg VBG HCO3 25 (22-26) mmol/L VBG O2 Saturation 92.0 % VBG Base Excess 1.0 mmol/L Sodium (135-145) mmol/L Potassium (3.3-5.1) mmol/L Chloride (96-108) mmol/L Carbon Dioxide (22-29) mmol/L Anion Gap (12-20) BUN (9-16) mg/dL Creatinine (0.5-1.4) mg/dL Estim Creat Clear Calc Estimated GFR POC Glucose (60-115) mg/dL Random Glucose (60-115) mg/dL Lactic Acid 2.7 H* (0.5-2.0) mmol/L Calcium (8.4-10.2) mg/dL Magnesium (1.6-2.6) mg/dL Total Bilirubin (0.0-1.0) mg/dL AST (5-37) U/L ALT (0-40) U/L Alkaline Phosphatase (39-117) U/L Troponin I High Sens 1725.5 H* D (<3.5-35.0) ng/L B-Natriuretic Peptide (<100) pg/mL Total Protein (6.5-8.0) g/dL Albumin (3.5-5.0) g/dL Influenza Type A (PCR) NEGATIVE (Negative) Influenza Type B (PCR) NEGATIVE (Negative) RSV RNA Qual (PCR) NEGATIVE (Negative) SARS-CoV-2 RNA (RT-PCR) NEGATIVE (Negative) Independent Interpretation I performed an independent interpretation of an: EKG, Plain X-Ray and CT Scan Interpretation: Normal sinus rhythm ventricular rate 83 beats per minute with ST depression in V1 V2 V3 V4 lead 2 with slight coving of ST segment in lead 3 and AVF. Impression inferolateral ischemia Radiology Impression Discussion of test interpretation with radiology: I have reviewed the radiologist's reading. Radiologist Impression: [facility] [address] [place] [address] CT Scan Report Signed Patient: Jose J Pinto MR#: [id number] : 1955 Acct:[id number] Age/Sex: 68 / M ADM Date: 09/23/23 Loc: [facility] [address] [place] [address] XRay Report Signed Patient: Jose J Pinto MR#: [id number] : 1955 Acct:[id number] Age/Sex: 68 / M ADM Date: 09/23/23 Loc: [facility] Attending Dr: Ordering Physician: Bienvenido Warner MD Date of Service: 09/23/23 Procedure(s): XR chest 1V Accession Number(s): [id number] cc: Jairo Lacey MD; Bienvenido Warner MD~ EXAMINATION: XR CHEST CLINICAL INFORMATION: Chest COMPARISON: None available. TECHNIQUE: Frontal view of the chest was obtained. FINDINGS: There are patchy airspace disease seen bilaterally more prominent in the lower lobes, most likely due to infectious to large airspace disease. There is no pleural effusion. Cardiomediastinal silhouette is normal. XR/XR chest 1V IMPRESSION: Multifocal pneumonia Attending Dr: Ordering Physician: Bienvenido Warner MD Date of Service: 09/23/23 Procedure(s): CT angio chest PE protocol Accession Number(s): [id number] cc: Jairo Lacey MD; Bienvenido Warner MD~ EXAMINATION: CT ANGIOGRAM OF THE CHEST WITH AND WITHOUT CONTRAST (CT PULMONARY ANGIOGRAM FOR PE) CLINICAL INFORMATION: Reason for Exam hypoxia/alveoloar hge COMPARISON: Chest radiograph 09/23/2023 TECHNIQUE: Prior to contrast administration, noncontrast localization images were obtained. Subsequently, multidetector volumetric imaging was performed from the thoracic inlet to below the diaphragms following the administration of 80 mL Omnipaque 350 intravenous contrast. No contrast reaction reported Sagittal, coronal, and MIP oblique sagittal reformatted images were obtained on the CT workstation, uploaded to PACS, and reviewed. This CT examination was performed using dose optimization techniques as appropriate, variously including the following: *Automated exposure control *Adjustment of mA and/or kV according to patient size (this includes techniques or standardized protocols for targeted exams where dose is matched to indication/reason for exam; i.e. extremities or head) *Use of iterative reconstruction technique Total exam dose-length product 549 mGy-cm FINDINGS: QUALITY OF STUDY/CONTRAST BOLUS: Satisfactory. Marked respiratory artifact is present, especially at the lung bases degrading the diagnostic detail PULMONARY ARTERIES: No central or large segmental pulmonary emboli. THORACIC AORTA: No aneurysm. LUNG: Dependent and perihilar increased interstitial markings are present with bibasilar atelectasis. No suspicious lung masses are seen. PLEURA: Tiny right effusion and trace left effusion. MEDIASTINUM: There is cardiomegaly. No pericardial effusion. No hilar or mediastinal lymphadenopathy. No evidence of septal bowing or right heart strain. CORONARY ARTERY CALCIFICATION: Moderate calcium is present along with probable coronary stents. CHEST WALL/AXILLA: No axillary or internal mammary lymphadenopathy. OSSEOUS STRUCTURES: No acute or suspicious osseous abnormality. UPPER ABDOMEN: Unremarkable. No reflux of contrast into the hepatic veins to suggest elevated right heart pressures. CT/CT angio chest PE protocol IMPRESSION: 1. No evidence of pulmonary emboli. 2. Cardiomegaly increased interstitial markings with tiny right and trace left pleural effusions. Findings suggest CHF. Superimposed pneumonia cannot be entirely excluded. VTE: negative. Critical Care Time Critical Care Time Critical Care Time: Yes Total Critical Care Time: 90 Attestation: The patient was critically ill with a high probability of imminent or life threatening deterioration. I spent greater than 100???minutes of discontinuous time evaluating the patient,delivering critical care at the bedside, discussing and evaluating pertinent data with consultants. Critical care time does not include time spent performing separately billable procedures or teaching. Total time spent performing critical care was 90???minutes. Discharge Plan Discharge Clinical Impression: Non-ST elevated myocardial infarction (non-STEMI), Acute cardiac pulmonary edema, Accelerated hypertension Patient Disposition: [facility] Transfer Details: Transferred to [facility] for acute pulmonary edema and accelerated hypertension with non-STEMI Interventions: Acute Care Transfer Worksheet (ED) Last Done: 09/23/23 23:41 Print Language: Japanese
[2023-09-23] MEDS: Furosemide 40 MG/4 ML VIAL IVPUSH (16:33)
[2023-09-23 16:36] LABS: Glucose, Whole Blood 292 mg/dL (60-115)
[2023-09-23 16:36] LABS: MANUAL DIFF FLAG NO
[2023-09-23] MEDS: Nitroglycerin 0.4 MG TAB.SUBL SUBLINGUAL (16:37)
[2023-09-23] MEDS: ondansetron HCL 4 MG/2 ML VIAL IVPUSH ×2 (16:38→17:53)
[2023-09-23] MEDS: Labetalol HCL 100 MG/20 ML VIAL 20 MG IVPUSH (16:46)
[2023-09-23 17:00] LABS: Basophils Absolute Auto 0.1 X10*3/uL (0.0-0.2); Basophils Percent Auto 0.6 % (0-2); Eosinophils Absolute Auto 0.6 X10*3/uL (0.0-0.4); Eosinophils Percent Auto 7.4 % (0-4); Hemoglobin 15.4 g/dl (14.0-18.0); Imm Gran Abs Auto 0.11 X10*3/uL (0.00-0.03); Imm Gran Pct Auto 1.3 % (0.0-0.4); Lymphocytes Absolute Auto 1.8 X10*3/uL (1.2-4.9); Mean Corpuscular HGB Conc 33.5 g/dl (31.0-36.0); Mean Corpuscular Hemoglobin 29.3 pg (27.0-33.0); Mean Corpuscular Volume 87.5 fL (80.0-98.0); Mean Platelet Volume 10.3 fL (9.4-12.4); Monocytes Absolute Auto 0.4 X10*3/uL (0.1-1.2); Neutrophils Absolute Auto 5.5 x10*3/uL (2.0-8.3); Neutrophils Percent Auto 64.7 % (45-73); Platelet Count 135 X10*3/uL (160-400); Red Blood Count 5.26 X10*6/uL (4.60-5.80); Red Cell Distribution Width 13.7 % (11.0-16.0); White Blood Count 8.4 X10*3/uL (4.8-10.8)
[2023-09-23 17:01] LABS: B Type Natriuretic Peptide 47 pg/mL (<100)
[2023-09-23 17:06] LABS: INTERNATIONAL NORM RATIO 0.9 (0.9-1.1); Prothrombin Time 10.5 SEC (11.1-13.3)
[2023-09-23 17:09] LABS: Partial Thromboplastin Time 24.9 SEC (26.0-36.8)
--- NOTE | 2023-09-23 17:15 | PC.NURSE ---
dr moreno made aware of bp down to 114/62 after med administration. pt had episode of bradycardia 37 BPM no new order per
[2023-09-23 17:20] LABS: VBG HCO3 25 mmol/L (22-26); VBG pCO2 40 mmHg; VBG pH 7.41 (7.32-7.43); VBG pO2 66 mmHg
[2023-09-23 17:21] LABS: Venous Blood Gas Refer to POC result
[2023-09-23 17:28] LABS: Alanine Aminotransferase 31 U/L (0-40); Alkaline Phosphatase 66 U/L (39-117); Anion Gap 17 (12-20); Aspartate Amino Transferase 33 U/L (5-37); Bilirubin Total 0.6 mg/dL (0.0-1.0); Blood Urea Nitrogen 23 mg/dL (9-16); Calcium 9.1 mg/dL (8.4-10.2); Carbon Dioxide 25 mmol/L (22-29); Chloride 102 mmol/L (96-108); Creatinine Clr Calc Pharmacy 74.7; Estimated Glomerular Filt Rate > 60; Glucose Random 293 mg/dL (60-115); Magnesium 1.9 mg/dL (1.6-2.6); Potassium 3.6 mmol/L (3.3-5.1); Sodium 140 mmol/L (135-145); Total Protein 7.1 g/dL (6.5-8.0)
[2023-09-23 17:37] LABS: Troponin-I High Sensitivity 81.5 ng/L (<3.5-35.0)
--- NOTE | 2023-09-23 17:42 | PC.NURSE ---
this rn assumed care of pt from ems @ 7232. pt responsive to voice and pain. pt a & o x4. ekg obtained pt placed on monitor bloodwork obtained dr moreno and RT to bedside pt placed on highflow NC @ 55L 75% pt medicated according to mal pt had one episode of vomiting upon arrival, food material noted in emesis no blood noted
[2023-09-23] MEDS: Prochlorperazine Edisylate 10 MG/2 ML VIAL IVPUSH (18:26)
[2023-09-23 18:37] LABS: Influenza A PCR NEGATIVE (Negative); Influenza B PCR NEGATIVE (Negative); Resp Syncy Virus RNA Qual PCR NEGATIVE (Negative); SARS COV2 PCR INHOUSE NEGATIVE (Negative)
[2023-09-23] MEDS: iohexoL 350 MG/ML 100 ML INFUS..BTL 85 ML IV (18:39)
--- NOTE | 2023-09-23 20:20 | ECG_ITS ---
Test Reason : SOB Blood Pressure : / mmHG Vent. Rate : 084 BPM Atrial Rate : 084 BPM P-R Int : 194 ms QRS Dur : 152 ms QT Int : 520 ms P-R-T Axes : 020 -41 -10 degrees QTc Int : 614 ms Normal sinus rhythm Left axis deviation Right bundle branch block T wave abnormality, consider lateral ischemia Abnormal ECG When compared with ECG of 23-SEP-2023 16:23, Fusion complexes are no longer Present NC interval has decreased Right bundle branch block has replaced Non-specific intra-ventricular conduction block Referred By: Bienvenido Warner Electronically Signed By:ARSALAN KESSLER MD
[2023-09-23] MEDS: Piperacillin Sodium/Tazobactam 3.375 GM in 0.9 % Sodium Chloride 50 ML IV (20:32)
[2023-09-23 21:08] LABS: Lactic Acid 2.7 mmol/L (0.5-2.0)
[2023-09-23] MEDS: Heparin Sodium,Porcine/1/2NS 25,000 UNIT/250 ML IV.SOLN 10 UNIT IVCONT (22:10)
[2023-09-23] MEDS: Heparin Sodium,Porcine 5,000 UNIT/ML VIAL 5000 UNIT IVPUSH (22:15)
[2023-09-23 22:25] LABS: Reflex Lactate? Lactic Acid Added
--- NOTE | 2023-09-23 22:30 | PC.NURSE ---
this rn and additional rn initited heparin gtt per protocol dose rate confirmed with pharmacist opal
--- NOTE | 2023-09-23 23:43 | PC.NURSE ---
this rn provided report to [facility] registered nurse maternity prior to transfer ems provided with report prior to transfer to [facility]
== END 2023-09-23 23:50 | disposition short-term general hospital (02) ==
PROVIDERS: Emergency Provider Internal Medicine; PCP Internal Medicine
DX: I21.4 Non-ST elevation (NSTEMI) myocardial infarction (principal); J81.1 Chronic pulmonary edema; R06.02 Shortness of breath; I45.10 Unspecified right bundle-branch block; I25.10 Atherosclerotic heart disease of native coronary artery without angina pectoris; R07.89 Other chest pain; I10 Essential (primary) hypertension; G47.33 Obstructive sleep apnea (adult) (pediatric); Z11.52 Encounter for screening for COVID-19; Z20.822 Contact with and (suspected) exposure to COVID-19; Z79.899 Other long term (current) drug therapy
CPT/HCPCS: 0241U; 36415; 71045; 71275; 80053; 82803; 82947; 83605; 83735; 83880; 84484; 85025; 85610; 85730; 87040; 93005; 96365; 96375; 99285; J0737; J1644; J1920; J1940; J2405; J2543; Q9967

== ENCOUNTER → 2023-09-23 16:24 | Outpatient (BNV) | payer MEDICARE, SELFPAY | PROVIDERS: Emergency Provider Internal Medicine; PCP Internal Medicine; Visit Provider Internal Medicine Cardiovascular Disease | DX: I44.0 Atrioventricular block, first degree (principal); R94.31 Abnormal electrocardiogram [ECG] [EKG] | CPT/HCPCS: 93010 ==

== ENCOUNTER 2024-01-04 10:37 | Outpatient (REF) | payer MEDICARE, SELFPAY ==
[2024-01-04 11:00] LABS: MANUAL DIFF FLAG NO
[2024-01-04 12:01] LABS: Basophils Percent Auto 0.3 % (0-2); Eosinophils Absolute Auto 0.1 X10*3/uL (0.0-0.4); Eosinophils Percent Auto 1.9 % (0-4); Hemoglobin 14.3 g/dl (14.0-18.0); Imm Gran Abs Auto 0.03 X10*3/uL (0.00-0.03); Imm Gran Pct Auto 0.5 % (0.0-0.4); Lymphocytes Absolute Auto 1.3 X10*3/uL (1.2-4.9); Lymphocytes Percent Auto 22.8 % (20-40); Mean Corpuscular HGB Conc 32.5 g/dl (31.0-36.0); Mean Corpuscular Volume 83.2 fL (80.0-98.0); Mean Platelet Volume 9.4 fL (9.4-12.4); Monocytes Absolute Auto 0.5 X10*3/uL (0.1-1.2); Monocytes Percent Auto 8.4 % (2-11); Neutrophils Absolute Auto 3.8 x10*3/uL (2.0-8.3); Neutrophils Percent Auto 66.1 % (45-73); Platelet Count 137 X10*3/uL (160-400); Red Blood Count 5.29 X10*6/uL (4.60-5.80); Red Cell Distribution Width 14.5 % (11.0-16.0); White Blood Count 5.7 X10*3/uL (4.8-10.8)
[2024-01-04 12:45] LABS: Alanine Aminotransferase 28 U/L (0-40); Albumin Level 4.2 g/dL (3.5-5.0); Alkaline Phosphatase 102 U/L (39-117); Anion Gap 11 (12-20); Aspartate Amino Transferase 22 U/L (5-37); Bilirubin Total 1.2 mg/dL (0.0-1.0); Blood Urea Nitrogen 18 mg/dL (9-16); Calcium 9.4 mg/dL (8.4-10.2); Carbon Dioxide 29 mmol/L (22-29); Chloride 104 mmol/L (96-108); Estimated Average Glucose 154 mg/dL; Estimated Glomerular Filt Rate > 60; Glucose Random 220 mg/dL (60-115); Sodium 141 mmol/L (135-145)
[2024-01-04 13:24] LABS: Potassium 2.9 mmol/L (3.3-5.1)
[2024-01-04 14:49] LABS: Creatinine Urine 49.38 mg/dL; Microalbum/Creatinine Ratio Ur 271.3 ug/mg cr (<30)
== END 2024-01-04 10:38 | disposition home or self-care (01) ==
LOC: HO.LAB 10:37
PROVIDERS: Absent Provider Nurse Practitioner Acute Care; PCP Internal Medicine; Visit Provider Internal Medicine
DX: I25.10 Atherosclerotic heart disease of native coronary artery without angina pectoris (principal); E11.9 Type 2 diabetes mellitus without complications; I10 Essential (primary) hypertension; Z95.1 Presence of aortocoronary bypass graft
CPT/HCPCS: 36415; 80048; 80053; 82043; 82570; 83036; 85025

== ENCOUNTER 2024-01-18 10:12 | Outpatient (REF) | payer MEDICARE, SELFPAY ==
[2024-01-18 14:00] LABS: Anion Gap 14 (12-20); Blood Urea Nitrogen 20 mg/dL (9-16); Calcium 9.5 mg/dL (8.4-10.2); Carbon Dioxide 26 mmol/L (22-29); Chloride 105 mmol/L (96-108); Estimated Glomerular Filt Rate > 60; Glucose Random 156 mg/dL (60-115); Potassium 3.2 mmol/L (3.3-5.1); Sodium 142 mmol/L (135-145)
== END 2024-01-18 10:13 | disposition home or self-care (01) ==
LOC: HO.10HDL 10:12
PROVIDERS: Referring Provider Nurse Practitioner Acute Care; Visit Provider Internal Medicine
DX: I10 Essential (primary) hypertension (principal)
CPT/HCPCS: 36415; 80048

== ENCOUNTER 2024-04-28 08:07 | Outpatient (REF) | payer MEDICARE, SELFPAY ==
[2024-04-28 08:20] LABS: MANUAL DIFF FLAG NO
[2024-04-28 08:49] LABS: Basophils Percent Auto 0.6 % (0-2); Eosinophils Absolute Auto 0.2 X10*3/uL (0.0-0.4); Eosinophils Percent Auto 2.9 % (0-4); Hematocrit 42.4 % (42.0-52.0); Hemoglobin 14.2 g/dl (14.0-18.0); Imm Gran Abs Auto 0.04 X10*3/uL (0.00-0.03); Imm Gran Pct Auto 0.6 % (0.0-0.4); Lymphocytes Absolute Auto 1.6 X10*3/uL (1.2-4.9); Lymphocytes Percent Auto 22.7 % (20-40); Mean Corpuscular HGB Conc 33.5 g/dl (31.0-36.0); Mean Corpuscular Hemoglobin 28.1 pg (27.0-33.0); Mean Corpuscular Volume 83.8 fL (80.0-98.0); Mean Platelet Volume 9.1 fL (9.4-12.4); Monocytes Absolute Auto 0.5 X10*3/uL (0.1-1.2); Monocytes Percent Auto 6.9 % (2-11); Neutrophils Absolute Auto 4.8 x10*3/uL (2.0-8.3); Neutrophils Percent Auto 66.3 % (45-73); Platelet Count 133 X10*3/uL (160-400); Red Blood Count 5.06 X10*6/uL (4.60-5.80); Red Cell Distribution Width 15.2 % (11.0-16.0); White Blood Count 7.2 X10*3/uL (4.8-10.8)
[2024-04-28 08:57] LABS: Estimated Average Glucose 192 mg/dL; Hemoglobin A1C 241.3366 umol/L; Hemoglobin A1c % 8.3 % (<6.0); Total Hemoglobin (HGBA1C) 3583.8074 umol/L
[2024-04-28 08:59] LABS: Appearance Urine Clear; Color Urine Yellow; Glucose Urine UA Negative (Negative); Leukocyte Esterase Urine Small (1+) (Negative); Nitrite Urine Negative (Negative); Specific Gravity - Urine 1.025 (1.005-1.025); UMIC TRIGGER UA YES; Urine Blood Negative (Negative); Urine Ketones Negative (Negative); Urine Protein 100 (2+) mg/dL (Neg-Trace)
[2024-04-28 09:06] LABS: Bacteria Urine None Seen (None Seen); Hyaline Casts Urine 0-2 /LPF (0-2); RBC Urine 0-2 /HPF (0-2); Squamous Epithelial Cell Urine 0-2 /HPF (0-2); WBC Urine 21-50 /HPF (0-5)
[2024-04-28 09:17] LABS: Alanine Aminotransferase 32 U/L (0-40); Albumin Level 4.2 g/dL (3.5-5.0); Alkaline Phosphatase 106 U/L (39-117); Anion Gap 11 (12-20); Aspartate Amino Transferase 25 U/L (5-37); Bilirubin Total 1.2 mg/dL (0.0-1.0); Blood Urea Nitrogen 20 mg/dL (9-16); Calcium 9.5 mg/dL (8.4-10.2); Carbon Dioxide 27 mmol/L (22-29); Chloride 103 mmol/L (96-108); Cholesterol 94 mg/dL (<200); Estimated Glomerular Filt Rate > 60; Glucose Fasting 203 mg/dL (60-99); HDL Cholesterol 28 mg/dL (>40); LDL Cholesterol Calculated 45 mg/dL (<100); Potassium 3.3 mmol/L (3.3-5.1); Sodium 138 mmol/L (135-145); Total Protein 7.1 g/dL (6.5-8.0); Triglycerides 107 mg/dL (<150)
[2024-04-28 09:31] LABS: Prostate Specific Antigen 1.77 ng/mL (<0.05-4.0)
[2024-04-28 09:48] LABS: Creatinine Urine 166.73 mg/dL; Microalbum/Creatinine Ratio Ur 198.5 ug/mg cr (<30)
== END 2024-04-28 08:08 | disposition home or self-care (01) ==
LOC: HO.LAB 08:07
PROVIDERS: PCP Internal Medicine; Visit Provider Internal Medicine
DX: E11.9 Type 2 diabetes mellitus without complications (principal); I10 Essential (primary) hypertension; E78.00 Pure hypercholesterolemia, unspecified; Z12.5 Encounter for screening for malignant neoplasm of prostate; I25.10 Atherosclerotic heart disease of native coronary artery without angina pectoris
CPT/HCPCS: 36415; 80053; 80061; 81001; 81003; 82043; 82570; 83036; 84153; 85025

== ENCOUNTER 2024-10-21 14:30 | Outpatient (AMB) | payer MEDICARE, SELFPAY ==
--- NOTE | 2024-10-21 14:33 | A.OFFPC_ITS ---
Vital Signs 10/21/24 14:41 10/21/24 15:04 Height 5 ft 9 in Weight 106.141 kg BMI 34.6 BP 162/78 H 149/67 H Respiration 16 Pulse 62 Pulse Source Pulse Oximeter Temp 97.3 F Temp Source Temporal Artery Scan Pulse Oximetry (%) 98 Oxygen Delivery Method Room Air Intake Visit Reasons: Routine Label Paster Required: No Accompanied by: Spouse Allergies No Known Allergies [No Known Allergies*] Allergy (Verified 10/21/24 14:36) HPI HPI Comments History of Present Illness Details 69-year-old male with history of type 2 diabetes, coronary artery disease, hypertension, hyperlipidemia, and sleep apnea presents to the office today for management of chronic conditions and to establish care. Last hemoglobin A1c was 8.3%. He has been compliant with 100 units of insulin every morning as well as 5 mg of majora weekly. He has not noticed any significant weight loss despite this. He reports compliance with diabetic diet. He is following with [facility], Dr. De Oliveira, and underwent cardiac catheterization and underwent several months of cardiac rehab with improved exercise tolerability. Will request records. Has not had any episodes of sob, lightheadedness, chest pain since. Blood pressures uncontrolled today despite compliance with antihypertensive agents. Compliant with cpap. Due for screening colonoscopy. No compliants at this time. ROS: General: No fevers, malaise, unintentional weight loss HEENT: No blurred vision, diplopia. No sore throat, nasal congestion, rhinorrhea, sinus pain, ear pain Cardiovascular: No chest pain, palpitations, or leg edema Respiratory: No shortness of breath, wheezing, cough MSK: No myalgia, back pain Neuro: No headaches, weakness, paresthesias Skin: No rashes or lesions Exam: Constitutional - Awake and Alert, No apparent distress Eyes - PERRLA, EOMI Cardiovascular - S1S2, RRR, No edema Respiratory - Normal lung expansion, Normal respiratory effort, No respiratory distress, CTA bilaterally Extremities - no calf tenderness bilaterally, no swelling Skin - Warm/Dry Neurological - Alert & oriented x3 Psychological - Appropriate affect [facility] Medical History (Updated 10/21/24 @ 14:45 by BAKARI Concepcion) Sleep apnea Hyperlipemia HTN (hypertension) Diabetes mellitus CAD (coronary artery disease) Surgical History (Updated 10/20/24 @ 16:49 by Tori Jefferson) History of colonoscopy (~06/20/19) H/O heart artery stent Physical exam (Primary Care) Vital Signs: Last Vital Signs Temp 97.3 F 10/21/24 14:41 Pulse 62 10/21/24 14:41 Resp 16 10/21/24 14:41 BP 149/67 H 10/21/24 15:04 Pulse Ox 98 10/21/24 14:41 Oxygen Delivery Method Room Air 10/21/24 14:41 BMI result Body Mass Index 34.6 Coding Level of Care Code New Pt Level 4 (45831) Complex EM visit Add On G2211 Diagnoses Diabetes mellitus E11.9 HTN (hypertension) I10 Hyperlipemia E78.5 Assessment & Plan Assessment & Plan (1) Diabetes mellitus: Code(s): E11.9 - Type 2 diabetes mellitus without complications Category: Medical Plan: Previously uncontrolled. Hemoglobin A1c ordered. Continue Basaglar 100 units daily as well as 5 mg majora weekly. We will also continue glipizide. Work on improving diabetic diet. Continue following annually for diabetic eye and foot exams. (2) HTN (hypertension): Code(s): I10 - Essential (primary) hypertension Category: Medical Plan: Uncontrolled with initial blood pressure 162/78, repeat 149/67. Will increase hydralazine to 75 mg t.i.d.. Continue hydrochlorothiazide 25 mg daily, losartan 40 mg daily. Follow low-sodium diet. Continue following with cardiology. BMP ordered to evaluate renal function electrolyte levels. (3) Hyperlipemia: Code(s): E78.5 - Hyperlipidemia, unspecified Category: Medical Plan: Lipid panel ordered. Continue atorvastatin 80 mg daily. Follow diet low in saturated fats and work on improving exercise. Continue following with cardiology. Plan Follow-up in the office in 2-3 weeks for blood pressure recheck. Increase hydralazine as noted above. Continue all other medications as prescribed. Labs ordered as below. Orders: Orders Basic Metabolic Panel 10/21/24 E11.9 - Type 2 diabetes mellitus without complications, E78.5 - Hyperlipidemia, unspecified, I10 - Essential (primary) hypertension Complete Blood Count Auto Diff 10/21/24 E11.9 - Type 2 diabetes mellitus without complications, E78.5 - Hyperlipidemia, unspecified, I10 - Essential (primary) hypertension Hemoglobin A1c 10/21/24 E11.9 - Type 2 diabetes mellitus without complications, E78.5 - Hyperlipidemia, unspecified, I10 - Essential (primary) hypertension Lipid Panel 10/21/24 E11.9 - Type 2 diabetes mellitus without complications, E78.5 - Hyperlipidemia, unspecified, I10 - Essential (primary) hypertension Liver Panel 10/21/24 E11.9 - Type 2 diabetes mellitus without complications, E78.5 - Hyperlipidemia, unspecified, I10 - Essential (primary) hypertension TSH reflex Free T4 10/21/24 E11.9 - Type 2 diabetes mellitus without complications, E78.5 - Hyperlipidemia, unspecified, I10 - Essential (primary) hypertension Medications: Changed From hydralazine 50 mg PO TID 90 tabs 1RF To hydralazine 75 mg (1.5 x 50 mg) PO TID 135 tabs 1RF
[2024-10-21 14:41] VITALS: BP 162/78; PULSE 62; RESP 16; TEMP 36.3; O2SAT 98; BMI 34.6
[2024-10-21 15:04] VITALS: BP 149/67
--- OUTSIDE RECORDS SUMMARY | 2024-10-21 15:54 | XMS_ITS ---
Author Organization [facility] Address [address] [place] [address] Care Team Providers Care Public Works Technician Name Role Phone Jairo Lacey MD Primary Care Provider Manjinder Lemus Unavailable [phone] Allergies No Known Allergies REASON FOR VISIT [...] glipiZIDE 5 MG TAKE 2 TABLETS BY [facility] TWICE A DAY Orally Once a day [...] N/A Encounters Encounter Location Date Provider Diagnosis [facility] [address] [place] [address] 08/12/2024 Manjinder Mckeon Colon cancer screeni ng Z12.11 ; Pre-procedural examination Z01.818 ; Hx of adenomatous colonic polyps Z86.010 and Long-term use of aspirin therapy Z79.82 Assessments Encounter Date Diagnosis (ICD Code) Assessment Notes Treatment Notes Treatment Clinical Notes Section Notes 08/12/2024 Colon cancer screening (ICD-10 - Z12.11) Need clearance from [facility] in regard to the colonoscopy [...] also obtain a clearance letter from his rolled gold plater. Huy and his were comfortable with this [...] also obtain a clearance letter from his rolled gold plater. Huy and his were comfortable with this [...] also obtain a clearance letter from his rolled gold plater. Huy and his were comfortable with this [...] also obtain a clearance letter from his rolled gold plater. Huy and his were comfortable with this plan. Thank you again for allowing me to participate in Huy's care. I shall continue to k overall eep you advised of his progress. Plan Of Treatment Treatment Notes Assessment Notes Colon cancer screening Need clearance [facility] in regard to the colonoscopy and anesthsiea, as well as in regard to the aspirin and Clopidogrel Pending Test Test Name Order Date COLONOSCOPY 08/12/2024 Next Appt Details Follow Up: prn, Reason: Provider Name:Manjinder Mckeon , 11/17/2024 08:30:00 AM, [address] [place] [address] , [place], [place], [phone], Progress Notes * HUY ORONADOB:1955 (69 yo M)Acc No.[id number]:08/12/2024 Progress Notes Patient:?YEYO HUY Provider:?Manjinder Mckeon MD :1955???Age:69 Y???Sex:Male Obed e:08/12/2024 Address: [address], [place], [id number] Pcp:Jairo Lacey MD Subjective: * Chief Complaints: [...] * Surgical History:?Oral surge ry CABG-4V at [facility] 09/2023 * Hospitalization/Major Diagno stic Procedure:?No Hospitalization History. * Family History:?Father: dece ased, kidney cancer.?Mother: .? The patient denies any family history of colorectal cancer. * Social History:?Tobacco Use:?Tobacco Use/Smoking?Are you a: nonsmoker.?Drugs/Alcohol:?Alcohol Screen?Points: 0, Interpretation: Negative.?Miscellaneous:?Marital status: . 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 ???Nonsmoker; no sig alcohol. * [...] also obtain a clearance letter from his rolled gold plater. Huy and his were comfortable with this plan. Thank you again for allowing me to participate in Huy's care. I shall continue to k overall eep you advised of his progress. Plan: * Treatment: Notes: Need clearance from [facility] in regard to the colonoscopy and anesthsiea, as well as in regard to the aspirin and Clopidogrel??2.?Hx of adenomatous colonic polyps?Procedure: COLONOSCOPY* with MACDO NOT TAKE ASPIRIN ON THE MORNING OF THE COLONOSCOPY.DO NOT TAKE CLOPIDOGREL FOR 5 DAYS BEFORE THE COLONOSCOPY, BUT ASK THE PENCILLER IF YOU STILL NEED THE CLOPIDOGREL IN [...] at 8:30 am , miralax * Procedure Codes:?29243 DIAGN OSTIC [id number] COLORECTAL CA SCREEN DOC [id number] TOBACCO [id number] DOC RSN FOR NOT SCREEN/REC F/U [id number] RCMND FLW-UP 10 YRS DOCD * Preventive [...] MD Date:? 025 Generated for Yoly byrd/Lelo/eTyomairasmitting on:?10/21/2024 03:54 PM EDT History and Physical Notes * [...]
--- OUTSIDE RECORDS SUMMARY | 2024-10-21 15:54 | XMS_ITS | Encounter Summary ---
Author Organization [facility] [place] [address] Care Team Providers Care National Sales Representative Name Role Phone Jairo Lacey MD Primary Care Provider Reason for Visit * Reason Onset Date Comments Procedure 10/17/2024 Colonoscopy on Encounter Details Date Type Department Care Team (Late st Contact Info) Description 10/17/2024 Telephone [facility] - [address] [facility] [address] [place] [address] Meir Rodriguez NP [address] [place] [address] [place] [id number] Procedure (Colonoscopy on 11/17) Social History Tobacco [...] on filedocumented in this encounter Care Teams National Sales Representative Relationship Specialty Start Date End Date Jairo Lacey MD [address] [place] [address] Dr Christa [place] PCP - General 09/26/23 documented as of this encounter
--- OUTSIDE RECORDS SUMMARY | 2024-10-21 15:54 | XMS_ITS | Patient Health Record ---
Author Organization [facility] Address [address] [place] [address] Care Team Providers Care Chassis Wirer Name Role Phone Jairo Lacey MD Primary Care Provider Manjinder Lemus Unavailable [phone] Allergies No Known Allergies Reason For Referral [...] 5 MG TAKE 2 TABLETS BY [facility] TWICE A DAY Orally Once a day Active Immunizations Vaccine Route Administration Date Status Comme nts Influenza Unknown 03/27/2019 Administered Problems Problem Type SNOMED Code ICD Code Onset Dates Problem Status W/U Status Risk Notes Problem 402566983 Encounter for screening for malignant neoplasm of colon (Z12.11) Active confirmed Problem 534459810 Long-term use of aspirin therapy (Z79.82) Active confirmed Problem 080633541 Hx of adenomatous colonic polyps (Z86.010) Active confirmed Problem 291011229659672 Pre-procedural examination (Z01.818) Active confirmed Problem 80274963 Hypertension, unspecified type (I10) Active confirmed Vital Signs Blood pressure diastolic 11 mm Hg 08/12/2024 Height 68 in 08/12/2024 Blood pressure systolic 111 mm Hg 08/12/2024 Weight 240 lbs 08/12/2024 BMI 36.49 kg/m2 08/12/2024 Procedures Procedure Date Ordered Date Performed Result Body Sit e COLONOSCOPY 08/12/2024 N/A Encounters Encounter Location Date Provider Diagnosis [facility] [address] [place] [address] 08/12/2024 Manjinder Mckeon Colon cancer screeni ng Z12.11 ; Pre-procedural examination Z01.818 ; Hx of adenomatous colonic polyps Z86.010 and Long-term use of aspirin therapy Z79.82 Assessments Encounter Date Diagnosis (ICD Code) Assessment Notes Treatment Notes Treatment Clinical Notes Section Notes 08/12/2024 Colon cancer screening (ICD-10 - Z12.11) Need clearance from [facility] in regard to the colonoscopy [...] also obtain a clearance letter from his television newscast director. Huy and his were comfortable with this [...] also obtain a clearance letter from his television newscast director. Huy and his were comfortable with this [...] also obtain a clearance letter from his television newscast director. Huy and his were comfortable with this [...] also obtain a clearance letter from his television newscast director. Huy and his were comfortable with this plan. Thank you again for allowing me to participate in Huy's care. I shall continue to k overall eep you advised of his progress. Plan Of Treatment Pending Test Test Name Order Date COLONOSCOPY 08/12/2024 Future Test Test Name Order Date COLONOSCOPY 10/15/2013 COLONOSCOPY 04/04/2019 Next Appt Details Provider Name:Manjinder Mckeon , 11/17/2024 08:30:00 AM, [address] [place] [address] , [place], [place], [phone], Insurance Providers Payer Name Payer Address Payer Phone Subscriber Number Group Number Insured Name Patient Relationship to Insured Coverage Start Date Coverage End Date [facility] [address] [place] [address] [id number] HUY ORONA Self - patient is the insured Medical (General) History Medical History History ICD Code Colonoscopy 09/20/2007--1 tub ular adenoma removed along with several hyperplastic polyps IDDM Diverticulosis Denies CVA,Lung disease,renal disease Kidney stones--ESWL, stents CAD--1 stent placed in 06/2009-no problem s since then Hyperlipidemia Sleep apnea--uses a CPAP machine Colonoscopy in 12/2013 with a small tubul ar adenoma removed [place] 09/2023---had a 4V CABG Colonoscopy in 06/2019 with a tubular cata noma removed Surgical History Surgery Date(Month/Year) CABG-4V at [facility] 09/2023 Oral surgery
--- OUTSIDE RECORDS SUMMARY | 2024-10-21 15:54 | XMS_ITS | Clinical Summary ---
Author Organization [facility] [employer] Address [address] [place] [address] Phone Care Team Providers Care [employer] Name Role Phone Jairo Lacey MD Primary Care Provider [phone] Allergies No known active allergies Medications aspirin [...] and medication compliance. CAD (coronary artery disease), kaw coronary a rtery 11/13/2023 Overview (08/03/2024): October [...] 11/13/2023 NSTEMI (non-ST elevated myoc ardial infarction) ([facility] V24, [facility] V28) 11/13/2023 S/P CABG x 4 11/13/2023 Encounters Date Type Department Care Team Description 10/17/2024 Telephone [facility] [address] [place] [address] Meir Rodriguez NP Procedure (Colonoscopy on 11/17) from Last 3 Months Medical History Medical History Date Comments ION (acute kidney injury) ([facility] V24) DX:ION (acute kidney injury) (HCC) Diabetes mellitus ([facility] V24, [facility] V28) DX:Diabetes mellitus (HCC) CELI treated with [...] [place]OSS - [place] MED[place] Care Teams [employer] Relationship Specialty Start Date End Date Jairo Lacey MD [address] [place] [address] Dr Christa [place] PCP - General 09/26/23
== END 2024-10-21 15:07 | disposition home or self-care (01) ==
LOC: HO.HMCHD 14:31
PROVIDERS: PCP Physician Assistant; Visit Provider Physician Assistant
DX: E11.9 Type 2 diabetes mellitus without complications (principal); I10 Essential (primary) hypertension; E78.5 Hyperlipidemia, unspecified

== ENCOUNTER → 2024-10-21 14:30 | Outpatient (BNVA) | payer MEDICARE, SELFPAY | PROVIDERS: PCP Physician Assistant; Visit Provider Physician Assistant | DX: E11.9 Type 2 diabetes mellitus without complications (principal); I25.10 Atherosclerotic heart disease of native coronary artery without angina pectoris; I10 Essential (primary) hypertension; E78.5 Hyperlipidemia, unspecified; G47.33 Obstructive sleep apnea (adult) (pediatric); Z99.89 Dependence on other enabling machines and devices; Z79.899 Other long term (current) drug therapy | CPT/HCPCS: 99202 ==

== ENCOUNTER 2024-10-29 07:15 | Outpatient (REF) | payer MEDICARE, SELFPAY ==
[2024-10-29 07:28] LABS: MANUAL DIFF FLAG NO
[2024-10-29 07:52] LABS: Basophils Percent Auto 0.5 % (0-2); Eosinophils Absolute Auto 0.4 X10*3/uL (0.0-0.4); Eosinophils Percent Auto 4.5 % (0-4); Hematocrit 42.7 % (42.0-52.0); Hemoglobin 14.6 g/dl (14.0-18.0); Imm Gran Abs Auto 0.04 X10*3/uL (0.00-0.03); Imm Gran Pct Auto 0.5 % (0.0-0.4); Lymphocytes Absolute Auto 1.5 X10*3/uL (1.2-4.9); Lymphocytes Percent Auto 19.6 % (20-40); Mean Corpuscular HGB Conc 34.2 g/dl (31.0-36.0); Mean Corpuscular Hemoglobin 29.1 pg (27.0-33.0); Mean Corpuscular Volume 85.1 fL (80.0-98.0); Mean Platelet Volume 8.9 fL (9.4-12.4); Monocytes Absolute Auto 0.5 X10*3/uL (0.1-1.2); Monocytes Percent Auto 6.2 % (2-11); Neutrophils Absolute Auto 5.4 x10*3/uL (2.0-8.3); Neutrophils Percent Auto 68.7 % (45-73); Platelet Count 121 X10*3/uL (160-400); Red Blood Count 5.02 X10*6/uL (4.60-5.80); Red Cell Distribution Width 13.9 % (11.0-16.0); White Blood Count 7.9 X10*3/uL (4.8-10.8)
[2024-10-29 07:57] LABS: Estimated Average Glucose 214 mg/dL; Hemoglobin A1C 292.0043 umol/L; Hemoglobin A1c % 9.1 % (<6.0); Total Hemoglobin (HGBA1C) 3831.8996 umol/L
[2024-10-29 08:20] LABS: Alanine Aminotransferase 31 U/L (0-40); Albumin Level 4.2 g/dL (3.5-5.0); Alkaline Phosphatase 94 U/L (39-117); Anion Gap 11 (12-20); Aspartate Amino Transferase 31 U/L (5-37); Bilirubin Direct 0.4 mg/dL (0.0-0.5); Bilirubin Total 1.1 mg/dL (0.0-1.0); Blood Urea Nitrogen 18 mg/dL (9-16); Calcium 9.3 mg/dL (8.4-10.2); Carbon Dioxide 28 mmol/L (22-29); Chloride 104 mmol/L (96-108); Cholesterol 104 mg/dL (<200); Estimated Glomerular Filt Rate > 60; Glucose Random 144 mg/dL (60-115); HDL Cholesterol 29 mg/dL (>40); LDL Cholesterol Calculated 49 mg/dL (<100); Potassium 3.4 mmol/L (3.3-5.1); Sodium 140 mmol/L (135-145); Total Protein 6.9 g/dL (6.5-8.0); Triglycerides 131 mg/dL (<150)
[2024-10-29 08:37] LABS: TSH reflex Free T4 0.53 uIU/mL (0.32-4.0)
== END 2024-10-29 07:16 | disposition home or self-care (01) ==
LOC: HO.LAB 07:15
PROVIDERS: PCP Physician Assistant; Visit Provider Physician Assistant
DX: E11.9 Type 2 diabetes mellitus without complications (principal); I10 Essential (primary) hypertension; E78.5 Hyperlipidemia, unspecified
CPT/HCPCS: 36415; 80048; 80061; 80076; 83036; 84443; 85025

== ENCOUNTER 2024-11-04 14:26 | Outpatient (AMB) | payer MEDICARE, SELFPAY ==
--- NOTE | 2024-11-04 14:42 | A.OFFPC_ITS ---
Vital Signs 11/04/24 14:44 11/04/24 15:10 Height 5 ft 9 in Weight 106.594 kg BMI 34.7 BP 146/64 H 138/68 Pulse 61 Pulse Source Pulse Oximeter Temp 97.3 F Temp Source Temporal Artery Scan Pulse Oximetry (%) 96 Oxygen Delivery Method Room Air Intake Visit Reasons: 2 Week F/U [employer] Required: No Accompanied by: Spouse Allergies No Known Allergies [No Known Allergies*] Allergy (Verified 11/04/24 14:43) Medication List - Last Reconciled 11/04/24 by BAKARI Concepcion aspirin (Adult Low Dose Aspirin) 81 mg PO DAILY atorvastatin 80 mg PO DAILY blood pressure monitor As directed carvedilol 12.5 mg PO BID clopidogrel 75 mg PO DAILY furosemide 20 mg PO DAILY glipizide mg PO hydralazine 75 mg (1.5 x 50 mg) PO TID hydrochlorothiazide 25 mg PO DAILY insulin glargine (Basaglar KwikPen U-100 Insulin) 100 units subcut QAM lisinopril 40 mg PO DAILY metoprolol tartrate 12.5 mg PO DAILY pen needle, diabetic As directed- daily tirzepatide 7.5 mg (0.5 mL) subcut QWEEK HPI HPI Comments History of Present Illness Details 69-year-old male with history of type 2 diabetes, hypertension, hyperlipidemia presents to the office today for management of chronic conditions and to follow- up. He was seen in the office 2 weeks ago with significantly elevated blood pressures. He has hydralazine was increased to 75 mg t.i.d.. He continues on metoprolol 12.5 mg daily, lisinopril 40 mg daily and hydrochlorothiazide 25 mg daily. He is also on furosemide 20 mg daily. Most recent labs were also reviewed. Hemoglobin A1c shows diabetes uncontrolled at 9.1%. He has been using Basaglar 80 units as prescribed as well as tirzepatide which was recently increased in dose though he has not yet started the increased dose. He reports his fasting glucoses are typically between 150 and 110. He is working to improve diabetic diet. ROS: General: No fevers, malaise, unintentional weight loss HEENT: No blurred vision, diplopia. No sore throat, nasal congestion, rhinorrhea, sinus pain, ear pain Cardiovascular: No chest pain, palpitations, or leg edema Respiratory: No shortness of breath, wheezing, cough GI: No abdominal pain, nausea, vomiting, diarrhea, constipation, melena, hematochezia : No dysuria, hematuria, increased urinary frequency, decreased urinary output MSK: No myalgia, back pain Neuro: No headaches, weakness, paresthesias Skin: No rashes or lesions EXAM: Constitutional - Awake and Alert, No apparent distress Cardiovascular - S1S2, RRR, No edema Respiratory - Normal lung expansion, Normal respiratory effort, No respiratory distress, CTA bilaterally Extremities - no calf tenderness bilaterally, no swelling Skin - Warm/Dry Neurological - Alert & oriented x3 Psychological - Appropriate affect [facility] Medical History (Updated 10/21/24 @ 14:45 by BAKARI Concepcion) Sleep apnea Hyperlipemia HTN (hypertension) Diabetes mellitus CAD (coronary artery disease) Surgical History (Updated 10/20/24 @ 16:49 by Tori Jefferson) History of colonoscopy (~06/20/19) H/O heart artery stent Physical exam (Primary Care) Vital Signs: Last Vital Signs Temp 97.3 F 11/04/24 14:44 Pulse 61 11/04/24 14:44 BP 138/68 11/04/24 15:10 Pulse Ox 96 11/04/24 14:44 Oxygen Delivery Method Room Air 11/04/24 14:44 BMI result Body Mass Index 34.7 Coding Level of Care Code Est Pt Level 4 (95408) Complex EM visit Add On G2211 Diagnoses HTN (hypertension) I10 Diabetes mellitus E11.9 Hyperlipemia E78.5 Assessment & Plan Assessment & Plan (1) HTN (hypertension): Code(s): I10 - Essential (primary) hypertension Category: Medical Plan: Controlled with blood pressure 138/68. Continue hydralazine 75 mg t.i.d., metoprolol, lisinopril, hydrochlorothiazide and carvedilol. Low-sodium diet. (2) Diabetes mellitus: Code(s): E11.9 - Type 2 diabetes mellitus without complications Category: Medical Plan: Uncontrolled. Increase tirzepatide to 7.5 mg weekly as previously ordered. Continue 80 units Basaglar daily. Monitor fasting glucose levels. Recommend improvement on diabetic diet and increased exercise to facilitate weight loss efforts as well (3) Hyperlipemia: Code(s): E78.5 - Hyperlipidemia, unspecified Category: Medical Plan: At goal. Continue atorvastatin 80 mg daily. Diet low in saturated fat and highly processed foods. Plan Follow-up in the office in 3 months. Labs to be completed prior to visit. Reviewed labs today. Continue medications as ordered. Blood pressure monitor ordered with goal less than 140/90 Orders: Orders Hemoglobin A1c 3 Months E11.9 - Type 2 diabetes mellitus without complications Medications: New blood pressure monitor As directed 1 ea 0RF
[2024-11-04 14:44] VITALS: BP 146/64; PULSE 61; TEMP 36.3; O2SAT 96; BMI 34.7
[2024-11-04 15:10] VITALS: BP 138/68
--- OUTSIDE RECORDS SUMMARY | 2024-11-04 16:18 | XMS_ITS ---
Author Organization [facility] Address [address] [place] [address] Care Team Providers Care Control Panel Operator Name Role Phone Jairo Lacey MD Primary Care Provider Manjinder Lemus Unavailable [phone] Allergies No Known Allergies REASON FOR VISIT [...] glipiZIDE 5 MG TAKE 2 TABLETS BY [facility] TWICE A DAY Orally Once [...] N/A Encounters Encounter Location Date Provider Diagnosis [facility] [address] [place] [address] 08/12/2024 Manjinder Mckeon Colon cancer screeni ng Z12.11 ; Pre-procedural examination Z01.818 ; Hx of adenomatous colonic polyps Z86.010 and Long-term use of aspirin therapy Z79.82 Assessments Encounter Date Diagnosis (ICD Code) Assessment Notes Treatment Notes Treatment Clinical Notes Section Notes 08/12/2024 Colon cancer screening (ICD-10 - Z12.11) Need clearance from [facility] in regard to the [...] also obtain a clearance letter from his automotive brake specialist. Huy and his were comfortable with this [...] also obtain a clearance letter from his automotive brake specialist. Huy and his were comfortable with this [...] also obtain a clearance letter from his automotive brake specialist. Huy and his were comfortable with this [...] also obtain a clearance letter from his automotive brake specialist. Huy and his were comfortable with this plan. Thank you again for allowing me to participate in Huy's care. I shall continue to k overall eep you advised of his progress. Plan Of Treatment Treatment Notes Assessment Notes Colon cancer screening Need clearance [facility] in regard to the colonoscopy and anesthsiea, as well as in regard to the aspirin and Clopidogrel Pending Test Test Name Order Date COLONOSCOPY 08/12/2024 Next Appt Details Follow Up: prn, Reason: Provider Name:Manjinder Mckeon , 11/17/2024 08:30:00 AM, [address] [place] [address] , [place], [place], [id number], Progress Notes * HUY ORONADOB:1955 (69 yo M)Acc No.[id number]:08/12/2024 Progress Notes Patient:?YEYO HUY Provider:?Manjinder Mckeon MD :1955???Age:69 Y???Sex:Male Obed e:08/12/2024 Address: [address], [place], [id number] Pcp:Jairo Lacey MD Subjective: * Chief Complaints: [...] * Surgical History:?Oral surge ry CABG-4V at [facility] 09/2023 * Hospitalization/Major Diagno stic Procedure:?No Hospitalization History. * Family History:?Father: dece ased, kidney cancer.?Mother: .? The patient denies any family history of colorectal cancer. * Social History:?Tobacco Use:?Tobacco Use/Smoking?Are you a: nonsmoker.?Drugs/Alcohol:?Alcohol Screen?Points: 0, Interpretation: Negative.?Miscellaneous:?Marital status: . 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 ???Nonsmoker; no sig alcohol. * [...] also obtain a clearance letter from his automotive brake specialist. Huy and his were comfortable with this plan. Thank you again for allowing me to participate in Huy's care. I shall continue to k overall eep you advised of his progress. Plan: * Treatment: Notes: Need clearance from [facility] in regard to the colonoscopy and anesthsiea, as well as in regard to the aspirin and Clopidogrel??2.?Hx of adenomatous colonic polyps?Procedure: COLONOSCOPY* with MACDO NOT TAKE ASPIRIN ON THE MORNING OF THE COLONOSCOPY.DO NOT TAKE CLOPIDOGREL FOR 5 DAYS BEFORE THE COLONOSCOPY, BUT ASK THE CLASS C DRIVER IF YOU STILL NEED THE CLOPIDOGREL IN [...] at 8:30 am , miralax * Procedure Codes:?29954 DIAGN OSTIC [id number] COLORECTAL CA SCREEN DOC [id number] TOBACCO [id number] DOC RSN FOR NOT SCREEN/REC F/U [id number] RCMND FLW-UP 10 YRS DOCD * Preventive [...] MD Date:? 025 Generated for Yoly byrd/Lelo/eTyomairasmitting on:?11/04/2024 04:17 PM EDT History and Physical Notes * [...]
== END 2024-11-04 15:24 | disposition home or self-care (01) ==
LOC: HO.HMCHD 14:28
PROVIDERS: PCP Physician Assistant; Visit Provider Physician Assistant
DX: I10 Essential (primary) hypertension (principal); E11.9 Type 2 diabetes mellitus without complications; E78.5 Hyperlipidemia, unspecified

== ENCOUNTER → 2024-11-04 14:26 | Outpatient (BNVA) | payer MEDICARE, SELFPAY | PROVIDERS: PCP Physician Assistant; Visit Provider Physician Assistant | DX: I10 Essential (primary) hypertension (principal); E11.9 Type 2 diabetes mellitus without complications; E78.5 Hyperlipidemia, unspecified | CPT/HCPCS: 99212 ==

== ENCOUNTER 2024-11-17 07:04 | Day surgery (SDC) | payer MEDICARE, SELFPAY ==
--- OUTSIDE RECORDS SUMMARY | 2024-10-20 13:12 | XMS_ITS | Patient Health Record ---
Author Organization [facility] Address [address] [place] [address] Care Team Providers Care Supervisor Industrial Garment Name Role Phone Jairo Lacey MD Primary Care Provider Manjinder Lemus Unavailable [phone] Allergies No Known Allergies Reason For Referral No Information Medications Medication SIG (Take, Route, Frequency, Duration) Notes Start Date End Date Status Clopidogrel Bisulfate 75 MG 1 tablet Ora lly Once a day Active Carvedilol 12.5 MG 1 tablet Orally Twic e a day Active Lantus 100 UNIT/ML 90 units Subcutaneou s once a day Active hydroCHLOROthiazide 25 MG 1 tablet in th e morning Orally Once a day Active Atorvastatin Calcium 80 MG 1 tablet Oral ly Once a day Active Lisinopril 40 MG 1 tablet Orally Once a day Active hydrALAZINE HCl 25 MG 1 tablet with food Orally three times a day Active Metoprolol Tartrate 25 MG Oral for 90 Days Active Mounjaro 5 MG/0.5ML Subcutaneous for 28 Days Active Furosemide 20 MG Oral for 90 Days Active Aspir-81 81 MG 1 tablet Orally Once a day Active glipiZIDE 5 MG TAKE 2 TABLETS BY [facility] TWICE A DAY Orally Once a day Active Immunizations Vaccine Route Administration Date Status Comme nts Influenza Unknown 03/27/2019 Administered Problems Problem Type SNOMED Code ICD Code Onset Dates Problem Status W/U Status Risk Notes Problem 169033714 Encounter for screening for malignant neoplasm of colon (Z12.11) Active confirmed Problem 371653852 Long-term use of aspirin therapy (Z79.82) Active confirmed Problem 282568080 Hx of adenomatous colonic polyps (Z86.010) Active confirmed Problem 521390440808328 Pre-procedural examination (Z01.818) Active confirmed Problem 80679393 Hypertension, unspecified type (I10) Active confirmed Vital Signs Blood pressure diastolic 11 mm Hg 08/12/2024 Height 68 in 08/12/2024 Blood pressure systolic 111 mm Hg 08/12/2024 Weight 240 lbs 08/12/2024 BMI 36.49 kg/m2 08/12/2024 Procedures Procedure Date Ordered Date Performed Result Body Sit e COLONOSCOPY 08/12/2024 N/A Encounters Encounter Location Date Provider Diagnosis [facility] [address] [place] [address] 08/12/2024 Manjinder Mckeon Colon cancer screeni ng Z12.11 ; Pre-procedural examination Z01.818 ; Hx of adenomatous colonic polyps Z86.010 and Long-term use of aspirin therapy Z79.82 Assessments Encounter Date Diagnosis (ICD Code) Assessment Notes Treatment Notes Treatment Clinical Notes Section Notes 08/12/2024 Colon cancer screening (ICD-10 - Z12.11) Need clearance from [facility] in regard to the colonoscopy and anesthsiea, as well as in regard to the aspirin and Clopidogrel Overall, Huy appears well. He seems to have recovered nicely from his cardiac issues and surgery from just about 1 year ago. Given his history of tubular adenomas of the colon and his last colonoscopy being over 5 years ago, I did recommend a follow-up colonoscopy for further screening purposes. We did review the rationale for this in regard to colon cancer prevention. Full consent has been obtained for this, including risks of bleeding and perforation. The procedure will be done with monitored anesthesia care. He was given the below instructions regarding adjustment of his medications for the procedure and we shall also obtain a clearance letter from his social service technician. Huy and his were comfortable with this plan. Thank you again for allowing me to participate in Huy's care. I shall continue to k overall eep you advised of his progress. 08/12/2024 Pre-procedural examination (ICD-10 - Z01.818) Overall, Huy appears well. He seems to have recovered nicely from his cardiac issues and surgery from just about 1 year ago. Given his history of tubular adenomas of the colon and his last colonoscopy being over 5 years ago, I did recommend a follow-up colonoscopy for further screening purposes. We did review the rationale for this in regard to colon cancer prevention. Full consent has been obtained for this, including risks of bleeding and perforation. The procedure will be done with monitored anesthesia care. He was given the below instructions regarding adjustment of his medications for the procedure and we shall also obtain a clearance letter from his social service technician. Huy and his were comfortable with this plan. Thank you again for allowing me to participate in Huy's care. I shall continue to k overall eep you advised of his progress. 08/12/2024 Hx of adenomatous colonic polyps (ICD-10 - Z86.010) Overall, Huy appears well. He seems to have recovered nicely from his cardiac issues and surgery from just about 1 year ago. Given his history of tubular adenomas of the colon and his last colonoscopy being over 5 years ago, I did recommend a follow-up colonoscopy for further screening purposes. We did review the rationale for this in regard to colon cancer prevention. Full consent has been obtained for this, including risks of bleeding and perforation. The procedure will be done with monitored anesthesia care. He was given the below instructions regarding adjustment of his medications for the procedure and we shall also obtain a clearance letter from his social service technician. Huy and his were comfortable with this plan. Thank you again for allowing me to participate in Huy's care. I shall continue to k overall eep you advised of his progress. 08/12/2024 Long-term use of aspirin therapy (ICD-10 - Z79.82) Overall, Huy appears well. He seems to have recovered nicely from his cardiac issues and surgery from just about 1 year ago. Given his history of tubular adenomas of the colon and his last colonoscopy being over 5 years ago, I did recommend a follow-up colonoscopy for further screening purposes. We did review the rationale for this in regard to colon cancer prevention. Full consent has been obtained for this, including risks of bleeding and perforation. The procedure will be done with monitored anesthesia care. He was given the below instructions regarding adjustment of his medications for the procedure and we shall also obtain a clearance letter from his social service technician. Huy and his were comfortable with this plan. Thank you again for allowing me to participate in Huy's care. I shall continue to k overall eep you advised of his progress. Plan Of Treatment Pending Test Test Name Order Date COLONOSCOPY 08/12/2024 Future Test Test Name Order Date COLONOSCOPY 10/15/2013 COLONOSCOPY 04/04/2019 Next Appt Details Provider Name:Manjinder Mckeon , 11/17/2024 08:30:00 AM, [address] [place] [address] , [place], [place], [phone], Insurance Providers Payer Name Payer Address Payer Phone Subscriber Number Group Number Insured Name Patient Relationship to Insured Coverage Start Date Coverage End Date [facility] [address] [place] [address] [id number] HUY ORONA Self - patient is the insured Medical (General) History Medical History History ICD Code Colonoscopy 09/20/2007--1 tub ular adenoma removed along with several hyperplastic polyps IDDM Diverticulosis Denies CVA,Lung disease,renal disease Kidney stones--ESWL, stents CAD--1 stent placed in 06/2009-no problem s since then Hyperlipidemia Sleep apnea--uses a CPAP machine Colonoscopy in 12/2013 with a small tubul ar adenoma removed [facility] 09/2023---had a 4V CABG Colonoscopy in 06/2019 with a tubular cata noma removed Surgical History Surgery Date(Month/Year) CABG-4V at [facility] 09/2023 Oral surgery
--- OUTSIDE RECORDS SUMMARY | 2024-10-20 13:12 | XMS_ITS ---
Author Organization [facility] Address [address] [place] [address] Care Team Providers Care Tipple Operator Name Role Phone Jairo Lacey MD Primary Care Provider Manjinder Lemus Unavailable [phone] Allergies No Known Allergies REASON FOR VISIT Patient presents today for a SCREENING COLON Medications Medication SIG (Take, Route, Frequency, Duration) Notes Start Date End Date Status Clopidogrel Bisulfate 75 MG 1 tablet Ora lly Once a day Active Carvedilol 12.5 MG 1 tablet Orally Twic e a day Active Lantus 100 UNIT/ML 90 units Subcutaneou s once a day Active hydroCHLOROthiazide 25 MG 1 tablet in th e morning Orally Once a day Active glipiZIDE 5 MG TAKE 2 TABLETS BY [facility] TWICE A DAY Orally Once a day Active Atorvastatin Calcium [...] 1 tablet Orally Once a day Active Vital Signs Blood pressure systolic 111 mm Hg 08/13/19 25 Blood pressure diastolic 11 mm Hg 025 Height 68 in 08/12/2024 Weight 240 lbs 08/12/2024 BMI 36.49 kg/m2 08/12/2024 Procedures Procedure Date Ordered Date Performed Result Body Sit e COLONOSCOPY 08/12/2024 N/A Encounters Encounter Location Date Provider Diagnosis [facility] [address] [place] [address] 08/12/2024 Manjinder Mckeon Colon cancer screeni ng Z12.11 ; Pre-procedural examination Z01.818 ; Hx of adenomatous colonic polyps Z86.010 and Long-term use of aspirin therapy Z79.82 Assessments Encounter Date Diagnosis (ICD Code) Assessment Notes Treatment Notes Treatment Clinical Notes Section Notes 08/12/2024 Colon cancer screening (ICD-10 - Z12.11) Need clearance from [facility] in regard to the colonoscopy and [...] also obtain a clearance letter from his investigator cash shortage. Huy and his were comfortable with this [...] also obtain a clearance letter from his investigator cash shortage. Huy and his were comfortable with this [...] also obtain a clearance letter from his investigator cash shortage. Huy and his were comfortable with this [...] also obtain a clearance letter from his investigator cash shortage. Huy and his were comfortable with this plan. Thank you again for allowing me to participate in Huy's care. I shall continue to k overall eep you advised of his progress. Plan Of Treatment Treatment Notes Assessment Notes Colon cancer screening Need clearance [facility] in regard to the colonoscopy and anesthsiea, as well as in regard to the aspirin and Clopidogrel Pending Test Test Name Order Date COLONOSCOPY 08/12/2024 Next Appt Details Follow Up: prn, Reason: Provider Name:Manjinder Mckeon , 11/17/2024 08:30:00 AM, [address] [place] [address] , [place], [place], [phone], Progress Notes * HUY ORONADOB:1955 (69 yo M)Acc No.[id number]:08/12/2024 Progress Notes Patient:?YEYO HUY Provider:?Manjinder Mckeon MD :1955???Age:69 Y???Sex:Male Obed e:08/12/2024 Address: [address], [place], [id number] Pcp:Jairo Lacey MD Subjective: * Chief Complaints: * ???Patient presents today fo r a SCREENING COLON * HPI: ???incontinence:? ...I saw Huy in the office today for evaluation of his personal history of tubular adenomas of the colon and need for colorectal cancer screening. He was accompanied by his . I last saw Huy in June 2019, at which time he underwent a follow-up screening colonoscopy with removal of a small tubular adenoma.. He has had previous colonoscopies with removal of tubular adenomas as well. He enjoys a good appetite and denies any significant heartburn or dysphagia. His bowel movements have been regular and without any signs of bleeding. He denies abdominal pain, jaundice, nor unintentional weight loss. He denies any known family history of colorectal cancer. Laboratories in April 2024 revealed a normal CBC except for a platelet count of 133,000, normal chemistries and renal function, and normal LFTs. * ROS:?General/Constitutional:?Change in appetite?denies.?Chills?denies.?Fatigue?denies.?Ophthalmologic:?Comments?all negative.?ENT:?Comments?all negative.?Respiratory:?hemoptysis?denies.?Cough?denies.?Cardiovascular:?Chest pain?denies.?Orthopnea?denies.?Gastrointestinal:?Comments?See HPI for details.?Genitourinary:?Hematuria?denies.?Dysuria?denies.?Musculoskeletal:?Painful joints?denies.?Weakness?denies.?Skin:?Itching?denies.?Rash?denies.?Neurologic:?Headache?denies.?Seizures?denies.?Psychiatric:?Comments?all negative.? * Medical History:? * Surgical History:?Oral surge ry CABG-4V at [facility] 09/2023 * Hospitalization/Major Diagno stic Procedure:?No Hospitalization History. * Family History:?Father: dece ased, kidney cancer.?Mother: .? The patient denies any family history of colorectal cancer. * Social History:?Tobacco Use:?Tobacco Use/Smoking?Are you a: nonsmoker.?Drugs/Alcohol:?Alcohol Screen?Points: 0, Interpretation: Negative.?Miscellaneous:?Marital status: . 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 ???Nonsmoker; no sig alcohol. * Medications:?TakinghydrALAZI NE HCl 25 MG Tablet 1 tablet with food Orally three times a day Lisinopril 40 MG Tablet 1 tablet Orally Once a day Atorvastatin Calcium 80 MG Tablet 1 tablet Orally Once a day hydroCHLOROthiazide 25 MG Tablet 1 tablet in the morning Orally Once a day Lantus 100 UNIT/ML Solution 90 units Subcutaneous once a day Carvedilol 12.5 MG Tablet 1 tablet Orally Twice a day Clopidogrel Bisulfate 75 MG Tablet 1 tablet Orally Once a day glipiZIDE 5 MG Tablet TAKE 2 TABLETS BY MOUTH TWICE A DAY Orally Once a day Aspir-81 81 MG Tablet Delayed Release 1 tablet Orally Once a day Furosemide 20 MG Tablet Oral Mounjaro 5 MG/0.5ML Solution Auto-injector Subcutaneous Metoprolol Tartrate 25 MG Tablet Oral Taking hydrALAZINE HCl 25 MG Tablet 1 tablet with food Orally three times a day Taking Lisinopril 40 MG Tablet 1 tablet Orally Once a day Taking Atorvastatin Calcium 80 MG Tablet 1 tablet Orally Once a day Taking hydroCHLOROthiazide 25 MG Tablet 1 tablet in the morning Orally Once a day Taking Lantus 100 UNIT/ML Solution 90 units Subcutaneous once a day Taking Carvedilol 12.5 MG Tablet 1 tablet Orally Twice a day Taking Clopidogrel Bisulfate 75 MG Tablet 1 tablet Orally Once a day Taking glipiZIDE 5 MG Tablet TAKE 2 TABLETS BY MOUTH TWICE A DAY Orally Once a day Taking Aspir-81 81 MG Tablet Delayed Release 1 tablet Orally Once a day Taking Furosemide 20 MG Tablet Oral Taking Mounjaro 5 MG/0.5ML Solution Auto-injector Subcutaneous Taking Metoprolol Tartrate 25 MG Tablet Oral DiscontinuedmetFORMIN HCl 500 MG Tablet TAKE 2 TABLETS BY MOUTH EVERY 4 HOURS NEEDED FOR PAIN Oral twice a day Simvastatin 80 MG Tablet 1 tablet in the evening Oral Once a day Lisinopril-hydroCHLOROthiazide 10-12.5 MG Tablet 1 tablet Orally twice a day Nitroglycerin 0.3 MG Tablet Sublingual 1 tablet under the tongue and allow to dissolve as needed Sublingual prn Januvia 50 MG Tablet 1 tablet Orally Once a day Medication List reviewed and reconciled with the patientDiscontinued metFORMIN HCl 500 MG Tablet TAKE 2 TABLETS BY MOUTH EVERY 4 HOURS NEEDED FOR PAIN Oral twice a day Discontinued Simvastatin 80 MG Tablet 1 tablet in the evening Oral Once a day Discontinued Lisinopril-hydroCHLOROthiazide 10-12.5 MG Tablet 1 tablet Orally twice a day Discontinued Nitroglycerin 0.3 MG Tablet Sublingual 1 tablet under the tongue and allow to dissolve as needed Sublingual prn Discontinued Januvia 50 MG Tablet 1 tablet Orally Once a day Medication List reviewed and reconciled with the patient * Allergies:?N.K.D.A.yes[Aller gies Verified] Objective: * Vitals:?Wt:240lbs, Ht: 68 in , BMI:36.49Index, BP:111/11mm Hg, Wt-k.86. * Examination: ???General Examination: ?GENERAL APPEARANCE:?pleasant, well nourished, well developed, in no acute distress.?EYES:?sclera non-icteric.?ORAL CAVITY:?mucosa moist.?NECK/THYROID:?no cervical lymphadenopathy, neck supple.?SKIN:?nonjaundiced, no spider angiomata.?HEART:?S1, S2 normal.?LUNGS:?clear to auscultation bilaterally.?ABDOMEN:?normal bowel sounds, no guarding or rigidity, no guarding or rigidity, no masses palpable, soft, nontender, nondistended.?EXTREMITIES:?no edema.?NEUROLOGIC:?alert and oriented.? Assessment: * Assessment: 1.?Pre-procedural examinatio n - Z01.818 (Primary)???2.?Colon cancer screening - Z12.11???3.?Hx of adenomatous colonic polyps - Z86.010???4.?Long-term use of aspirin therapy - Z79.82??? Overall, Huy appears well. He seems to [...] also obtain a clearance letter from his investigator cash shortage. Huy and his were comfortable with this plan. Thank you again for allowing me to participate in Huy's care. I shall continue to k overall eep you advised of his progress. Plan: * Treatment: Notes: Need clearance from [facility] in regard to the colonoscopy and anesthsiea, as well as in regard to the aspirin and Clopidogrel??2.?Hx of adenomatous colonic polyps?Procedure: COLONOSCOPY* with MACDO NOT TAKE ASPIRIN ON THE MORNING OF THE COLONOSCOPY.DO NOT TAKE CLOPIDOGREL FOR 5 DAYS BEFORE THE COLONOSCOPY, BUT ASK THE PRINTING AND STAMPING SUPERVISOR IF YOU STILL NEED THE CLOPIDOGREL IN GENERAL.DO NOT TAKE THE MOUNJARO FOR AT LEAST 7 DAYS BEFORE THE COLONOSCOPY.DO NOT TAKE THE HYDROCHLOROTHIAZIDE OR FUROSEMIDE THE DAY BEFORE OR ON THE DAY OF THE COLONOSCOPY.TAKE ONLY 1/2 THE USUAL LANTUS THE NIGHT BEFORE THE COLONOSCOPY.DO NOT TAKE THE GLIPIZIDE THE NIGHT BEFORE OR ON THE MORNING OF THE COLONOSCOPY.Juan LuisKatharinan 08/12/2024 02:21:17 PM EDT greater than sched for 11/17/24 at 8:30 am , miralax * Procedure Codes:?04586 DIAGN OSTIC [id number] COLORECTAL CA SCREEN DOC [id number] TOBACCO [id number] DOC RSN FOR NOT SCREEN/REC F/U [id number] RCMND FLW-UP 10 YRS DOCD * Preventive Medicine:? ??Counseling:?Care goal follow-up plan:?Above Normal BMI Follow-up?Giving encouragement to exercise,?BMI management provided?Yes.? ??Screenings:?Fall Risk Screening?Fall Risk Assessment:?No falls in the past year,?Screening:?No falls in the past year,?Assessment:?Not performed, no reason specified,?Plan of Care:?Not documented, no reason specified.? * Follow Up:?prn * * Sign off status: Completed true * Provider:?Manjinder Mckeon MD Date:? 025 Generated for Yoly byrd/Lelo/eTyomairasmitting on:?10/20/2024 01:12 PM EDT History and Physical Notes * Examination Category Sub-Category Detail Notes Category Not es General Examination GENERAL APPEARANCE: pleasant , well nourished, well developed, in no acute distress HEAD: EYES: sclera non-icteric EARS: NOSE: THROAT: NECK/THYROID: no cervical lymphade nopathy, neck supple HEART: S1, S2 normal CHEST: LUNGS: clear to auscultatio n bilaterally ABDOMEN: normal bowel sounds, no guarding or rigidity, no guarding or rigidity, no masses palpable, soft, nontender, nondistended NEUROLOGIC: alert and oriented SKIN: nonjaundiced, no spi luis m angiomata EXTREMITIES: no edema PERIPHERAL PULSES: BACK: BREASTS: MUSCULOSKELETAL: MALE GENITOURINARY: LYMPH NODES: RECTAL EXAM: FEMALE GENITOURINARY: ORAL CAVITY: mucosa moist
--- OUTSIDE RECORDS SUMMARY | 2024-10-20 13:12 | XMS_ITS | Clinical Summary ---
Author Organization [facility]PDIA Address [address] [place] [address] Phone Care Team Providers Care Coordinator Of Evaluation Name Role Phone Jairo Lacey MD Primary Care Provider [phone] Allergies No known active allergies Medications aspirin 81 mg EC tablet Take 1 tablet (81 mg total) by mouth 1 (one) time each day. Active atorvastatin (LIPITOR) 80 mg tablet Take 1 tablet (80 mg total) by mouth 1 (one) time each day. Active clopidogreL (PLAVIX) 75 mg tablet Take 1 tablet (75 mg total) by mouth 1 (one) time each day. Active furosemide (LASIX) 20 mg tablet Take 1 tablet (20 mg total) by mouth 1 (one) time each day. Active glipiZIDE (GLUCOTROL) 5 mg tablet Take 1 Tablet by mouth 2 times daily (before meals). Active hydrALAZINE (APRESOLINE) 50 mg tablet Take 1.5 Tablets by mouth 3 times daily. Active hydroCHLOROthiaz chema 12.5 mg tablet Take 2 tablets (25 mg total) by mouth 1 (one) time each day. 01/07/2024 Active insulin glargine (LANTUS) 100 unit/mL injection Inject 90 Units into the skin at bedtime. Active lisinopril (PRINIVIL,ZESTRI L) 40 mg tablet Take 1 tablet (40 mg total) by mouth 1 (one) time each day. 10/31/2023 Active tirzepatide (Mounjaro) 2.5 mg/0.5 mL injection Inject 0.5 mL (2.5 mg total) under the skin every 7 (seven) days. Active carvediloL (COREG) 12.5 mg tabletIndication s:Hypertension, unspecified type Take 1 tablet (12.5 mg total) by mouth 2 (two) times a day with meals. 180 each 3 06/20/2024 06/20/19 26 Active Active Problems Problem Noted Date Diagnosed Date Hypertension 08/03/2024 Assessment & Plan (08/03/2024 7:36 PM EST): Elevated in office and at home. Switch metoprolol to carvedilol. Continue with hydralazine, carvedilol, HCTZ, furosemide and lisinopril. Orders: carvediloL (COREG) 12.5 mg tablet; Take 1 tablet (12.5 mg total) by mouth 2 (two) times a day with meals. Ischemic cardiomyopathy 08/03/2024 Overview (08/03/2024): Previously moderately reduced LV systolic function LVEF 35-40% March 2024 - echocardiogram shows preserved left ventricular systolic function LVEF 55 to 60% with normal regional wall motion, moderate concentric left ventricular hypertrophy, mild left atrial dilatation, reduced right ventricular global systolic function, no hemodynamically significant valvular disease and small pericardial effusion with pleural effusion noted Assessment & Plan (08/03/2024 7:36 PM EST): Normalized LV systolic function LVEF 55-60% on March 2024 study following complete revascularization via CABGx4. Compensated on exam. Continue with aspirin, atorvastatin, clopidogrel, hydralazine, carvedilol, HCTZ, furosemide and lisinopril. We reviewed heart failure management including low-sodium diet, symptom surveillance, daily weights and medication compliance. CAD (coronary artery disease), [place] coronary a rtery 11/13/2023 Overview (08/03/2024): October 2011 - angiogram status post ANAI to the LAD September 2023 - repeat angiogram showing multivessel disease status post successful four-vessel coronary artery bypass grafting with GONZALEZ to LAD, radial to OM1, SVG to OM 2 and SVG to PDA Assessment & Plan (08/03/2024 7:36 PM EST): Catheterization in 2023 showed multivessel disease status post four vessel CABG. Echocardiogram from March 2024 showed preserved/normalized LV systolic function LVEF 55-60%. No further anginal symptoms. Blood pressures elevated, but with history of bradycardia on increased metoprolol. Will switch metoprolol to carvedilol. Continue with aspirin, atorvastatin, clopidogrel, hydralazine, HCTZ, furosemide and lisinopril. We discussed risk reduction through lifestyle choices including healthy diet, routine exercise and weight management. HLD (hyperlipidemia) 11/13/2023 Assessment & Plan (08/03/2024 7:36 PM EST): No recent lipid panel on file. Continue with high dose atorvastatin. Hypertensive emergency 11/13/2023 NSTEMI (non-ST elevated myoc ardial infarction) ([facility] V24, [facility] V28) 11/13/2023 S/P CABG x 4 11/13/2023 Encounters Date Type Department Care Team Description 10/17/[address] [facility] - [address] [place] [address] Meir Rodriguez NP Procedure (Colonoscopy on 11/17) from Last 3 Months Medical History Medical History Date Comments ION (acute kidney injury) ([facility] V24) DX:ION (acute kidney injury) (HCC) Diabetes mellitus ([facility] V24, [facility] V28) DX:Diabetes mellitus (HCC) CELI treated with BiPAP DX:CELI tr eated with BiPAP Social History Tobacco Use Types Packs/Day Years Used Date Smoking Tobacco: Former Cigarettes Q uit: 06/04/1976 Smokeless Tobacco: Never Alcohol Use Standard Drinks/Week Comments Never 0 (1 standard drink = 0.6 oz pur e alcohol) Sex and Gender Information Value Date Recorded Sex Assigned at Not on file Legal Sex Male 1:53 PM EST Gender Identity Not on file Sexual Orientation Not on file Obstetrics History Last Filed Vital Signs Vital Sign Reading Time Taken Comments Blood Pressure 160/70 06/20/2024 10:36 AM EST Pulse 76 06/20/2024 10:36 AM EST Temperature - - Respiratory Rate - - Oxygen Saturation 96% 06/20/2024 10:36 AM EST Inhaled Oxygen Concentration - - Weight 111 kg (244 lb 14.4 oz) 06/20/2024 10:36 AM EST Height 175.3 cm (5' 9 ) 06/20/2024 10:36 AM EST Body Mass Index 36.17 06/20/2024 10:36 AM EST Plan of Treatment Health Maintenance Due Date Last Done Comments DTaP,Tdap,and Td Vaccines (1 - Tdap) 02/28/1972 Zoster Vaccines (1 of 2) 2003 Pneumococcal Vaccine: 50+ Years (2 of 2 - PPSV23) 03/23/2020 03/23/2019 COVID-19 Vaccine ( season) 2024 05/26/2021, 09/21/2020, 08/31/2020 Abdominal Aortic Aneurysm (AAA) Screen 03/12/2024 Cholesterol Screening (Lipid Panel) 03/12/2024 Colorectal Cancer Screening: Colonoscopy 03/12/2024 Depression Screening 03/12/2024 Falls Risk Assessment 03/12/2024 Hepatitis C Screening 03/12/2024 Hypertension/CHF/CAD Annual BMP Blood Test 03/12/2024 Medicare Annual Wellness Visit 03/12/2024 Social Influencers of Health Screening 03/12/2024 Influenza Vaccine (Season Ended) 2025 02/10/2022, 02/06/2021, 03/23/2019, Additional history exists RSV Immunization Adult Patients (1 - 1-dose 75+ series) 02/28/2028 HIB Vaccines Aged Out No longer eligi ble based on patient's age to complete this topic HPV Vaccines Aged Out No longer eligi ble based on patient's age to complete this topic Hepatitis A Vaccines Aged Out No long er eligible based on patient's age to complete this topic Hepatitis B Vaccines Aged Out No long er eligible based on patient's age to complete this topic IPV Vaccines Aged Out No longer eligi ble based on patient's age to complete this topic MMR Vaccines Aged Out No longer eligi ble based on patient's age to complete this topic Meningococcal ACWY Vaccine Aged Out N o longer eligible based on patient's age to complete this topic Meningococcal B Vaccine Aged Out No l onger eligible based on patient's age to complete this topic RSV Immunization Patients Under 20 months Aged Out No longer eligible based on patient's age to complete this topic Varicella Vaccines Aged Out No longer eligible based on patient's age to complete this topic Insurance [employer] - [place] MEDICARE ADVANTAGE Care Teams Coordinator Of Evaluation Relationship Specialty Start Date End Date Jairo Lacey MD [address] [place] [address] Dr Christa [place] PCP - General 09/26/23
--- OUTSIDE RECORDS SUMMARY | 2024-10-20 13:13 | XMS_ITS | Encounter Summary ---
Author Organization [facility] [place] [address] Care Team Providers Care Carton Forming Machine Operator Name Role Phone Jairo Lacey MD Primary Care Provider [phone] Reason for Visit * Reason Onset Date Comments Procedure 10/17/2024 Colonoscopy on Encounter Details Date Type Department Care Team (Late st Contact Info) Description 10/17/2024 Telephone [facility] - [address] [place] [address] Meir Rodriguez NP [address] [place] [address] [place] [address] Procedure (Colonoscopy on 11/17) Social History Tobacco Use Types Packs/Day Years [...] on file Sexual Orientation Not on file documented as of this encounter Progress Notes * Preethi York MA - 10/17/2024 11:19 AM EDT Danielle called from Dr Campoverde's office. The patient is having a colonoscopy on 11/17 and they want toknow if the patient can hold his plavix for 5 days prior to the procedure. They are also asking fora clearance letter, please advise. documented in this encounter Plan of Treatment Not on file documented as of this encounter Visit Diagnoses Not on filedocumented in this encounter Care Teams Carton Forming Machine Operator Relationship Specialty Start Date End Date Jairo Lacey MD [address] [place] [address] Dr Christa [place] PCP - General 09/26/23 documented as of this encounter
[2024-11-13 14:07] VITALS: BMI 36.5
--- NOTE | 2024-11-14 12:56 | P.CONAN_ITS ---
Documented by User: Jill Basurto NP 11/14/24 13:04 HPI - Anesthesia Eval Consult details Narrative: 69yo F for Colonoscopy CAD s/p CABG 11/2023 - Follows Cardiology. Stable at 06/2024 office visit with 6 month f/u Ischemic CMP with resolved EF 55-60% by ECHO 03/2024 Anesthesia Pre-Procedure Meds Is the patient on any of the following meds?: GLP1/DPP4 PMFSH Active Problems Active Problems: All Active Problems Hyperlipemia (Acute) HTN (hypertension) (Acute) Diabetes mellitus (Acute) Past Medical History Medical History (Updated 11/13/24 @ 13:44 by Devora Mills, JOSAFAT) Hx of renal calculi History of diverticulosis CELI on CPAP Sleep apnea Hyperlipemia HTN (hypertension) Diabetes mellitus CAD (coronary artery disease) Surgical History Surgical History (Updated 11/17/24 @ 07:23 by Tiffany Godoy RN) Hx of lithotripsy S/P CABG (coronary artery bypass graft) (09/2023) History of colonoscopy (~06/20/19) H/O heart artery stent Social History Social History Patient Tobacco Use Status: Former Tobacco user Use of substances other than those prescribed or required for medical reasons: No Are you DNR?: No Advance Directives: No Advance Directives Information Provided: Yes Poor oral hygiene: No Meds Allergies Allergy/AdvReac Type Severity Reaction Status Date / Time No Known Allergies Allergy Verified 11/04/24 14:43 [No Known Allergies*] Home Medications ?Medication ?Instructions ?Recorded ?Confirmed ?Last Taken ?Type aspirin 81 mg tablet,delayed 81 mg PO DAILY 10/21/24 11/04/24 Unknown History release (Adult Low Dose Aspirin) atorvastatin 80 mg tablet 80 mg PO DAILY 10/21/24 11/04/24 Unknown History furosemide 20 mg tablet 20 mg PO DAILY 10/21/24 11/04/24 Unknown History glipizide 5 mg tablet mg PO 10/21/24 11/04/24 Unknown History lisinopril 40 mg tablet 40 mg PO DAILY 10/21/24 11/04/24 Unknown History metoprolol tartrate 25 mg tablet 12.5 mg PO DAILY 10/21/24 11/04/24 Unknown History carvedilol 12.5 mg tablet 12.5 mg PO BID 11/04/24 11/04/24 Unknown History Exam Height,Weight and Vital Signs: Height 5 ft 8 in Weight 108.862 kg Assessment and Plan Assessment Anesthesia Assessment: Chart Reviewed Documented by User: Sebastian Bajwa MD 11/17/24 07:51 COUNTS INCLUDE 234 BEDS AT [facility] Past Medical History Medical History (Updated 11/13/24 @ 13:44 by Devora Mills RN) Hx of renal calculi History of diverticulosis CELI on CPAP Sleep apnea Hyperlipemia HTN (hypertension) Diabetes mellitus CAD (coronary artery disease) Family History Family history of problems with anesthesia: No Surgical History Surgical History (Updated 11/17/24 @ 07:23 by Tiffany Godoy RN) Hx of lithotripsy S/P CABG (coronary artery bypass graft) (09/2023) History of colonoscopy (~06/20/19) H/O heart artery stent History of Problems with Anesthesia: No Social History Social History Patient Tobacco Use Status: Former Tobacco user Use of substances other than those prescribed or required for medical reasons: No Are you DNR?: No Advance Directives: No Advance Directives Information Provided: Yes Poor oral hygiene: No Meds Allergies Allergy/AdvReac Type Severity Reaction Status Date / Time No Known Allergies Allergy Verified 11/04/24 14:43 [No Known Allergies*] Home Medications ?Medication ?Instructions ?Recorded ?Confirmed ?Last Taken ?Type aspirin 81 mg tablet,delayed 81 mg PO DAILY 10/21/24 11/04/24 Unknown History release (Adult Low Dose Aspirin) atorvastatin 80 mg tablet 80 mg PO DAILY 10/21/24 11/04/24 Unknown History furosemide 20 mg tablet 20 mg PO DAILY 10/21/24 11/04/24 Unknown History glipizide 5 mg tablet mg PO 10/21/24 11/04/24 Unknown History lisinopril 40 mg tablet 40 mg PO DAILY 10/21/24 11/04/24 Unknown History metoprolol tartrate 25 mg tablet 12.5 mg PO DAILY 10/21/24 11/04/24 Unknown History carvedilol 12.5 mg tablet 12.5 mg PO BID 11/04/24 11/04/24 Unknown History Exam Airway Mallampati Class: III TM Dist: >3cm Neck ROM: Full Assessment and Plan Assessment Anesthesia Assessment: Anesthesia Plan Discussed Final Anesthetic Review Family History of Problems with Anesthesia: No History of Problems with Anesthesia: No NPO: Yes ASA Class: III Final Preanesthetic Review: No Changes in Pt Med Stat, Meds/Allgs Chart Reviewed, Consent Obtained/Reviewed and Anes Risks/Benef Reviewed Patient Risk: Intermediate Procedure Risk: Low Anesthetic Plan Anesthetic Plan: TIVA Disposition: Standard PACU
[2024-11-17 07:24] VITALS: BMI 34.2
[2024-11-17 07:41] VITALS: BP 200/77; PULSE 65; RESP 16; TEMP 36.3; O2SAT 98
[2024-11-17 07:42] VITALS: BP 163/62
[2024-11-17] MEDS: Lactated Ringers 1,000 ML 100 ML IVCONT (08:00)
[2024-11-17 09:04] LABS: Glucose, Whole Blood 103 mg/dL (60-115)
[2024-11-17 09:58] VITALS: BP 121/47; PULSE 66; RESP 18; TEMP 36.3; O2SAT 98
--- NOTE | 2024-11-17 09:59 | PM.OP ---
Brief Operative Note Date of Service: 11/17/24 Pre-op diagnosis: Screening Post-op diagnosis: other (Colon polyps) Procedure: Colonoscopy to the cecum and TI with hot snare polypectomy and cold snare polypectomy with placement of 1 Resolution clip each Surgeon: Manjinder Mckeon MD Anesthesia: MAC Was an Protective Signal Operations Supervisor used for this Procedure?: No Estimated blood loss (mL): 2.0 Pathology: other (A. Transverse colon polyp B. Polyp at 50cm) Condition: stable Disposition: PACU
[2024-11-17 10:13] VITALS: BP 132/93; PULSE 62; RESP 18; TEMP 36.1; O2SAT 99
--- NOTE | 2024-11-17 10:42 | OP_ITS ---
DATE OF SERVICE: 11/17/2024 SURGEON: Manjinder Mckeon MD INDICATIONS: The patient presents for evaluation of colorectal cancer screening and personal history of tubular adenoma of the colon. Full consent has been obtained from him for this, including risks of bleeding and perforation. PREOPERATIVE DIAGNOSIS: POSTOPERATIVE DIAGNOSIS: PROCEDURE PERFORMED: Colonoscopy to the cecum and terminal ileum with hot snare polypectomy x1 and cold snare polypectomy x1 with placement of 1 resolution clip on each polypectomy site. ESTIMATED BLOOD LOSS: COMPLICATIONS: ANESTHESIA: Medication use monitored anesthesia care. ASSISTANTS: SPECIMENS: PREOPERATIVE DIAGNOSES: Colorectal cancer screening and personal history of tubular adenoma of the colon. POSTOPERATIVE DIAGNOSES: Colorectal cancer screening and personal history of tubular adenoma of the colon, colon polyps, diverticulosis, and internal hemorrhoids. DESCRIPTION OF PROCEDURE: The patient was placed in the left lateral decubitus position. The digital rectal exam revealed no abnormalities. The Olympus video pediatric colonoscope was entered into the rectum and advanced easily to the cecum. Once in the cecum, I did identify normal-appearing cecal pouch with appendiceal orifice and a normal-appearing ileocecal valve. The terminal ileum was cannulated and appeared normal. The scope was withdrawn back in the colon. The entire cecum and ileocecal valve appeared normal. The scope was slowly withdrawn assessing all mucosal surfaces carefully. Preparation was excellent. In the transverse colon was an approximately 10 mm flat, but raised polyp, which was removed by hot snare polypectomy and recovered by suction. The polypectomy site appeared clean, without any sign of residual polyp nor bleeding. A single resolution clip was applied to the polypectomy site with good deployment and good hemostasis. At 40 cm, was an approximately 5 mm polyp, which was removed by cold snare polypectomy and recovered by suction. The polypectomy site appeared clean, without any sign of residual polyp nor significant bleeding. A single resolution clip was applied to the polypectomy site with good deployment and good hemostasis. I did not visualize any other polyps, colitis, nor angiodysplasia. There was a mild amount of sigmoid diverticulosis. In the rectum, scope was retroflexed visualizing internal hemorrhoids, but no other pathology. The rectal mucosa appeared normal. The scope was straightened and withdrawn from the patient. He tolerated the procedure well and was returned to the recovery area in stable condition. IMPRESSION: 1. Colon polyps. 2. Diverticulosis. 3. Internal hemorrhoids. PLAN: The results of the pathology will be checked. I would recommend a repeat colonoscopy in 5 years for further screening. He was advised to resume his clopidogrel tomorrow and to resume his aspirin in 48 hours. He will otherwise see me as needed. 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 MD SANDRA Gamino/JAIRO / [id number] MTDD
== END 2024-11-17 10:41 | disposition home or self-care (01) ==
PROVIDERS: PCP Internal Medicine; Visit Provider Internal Medicine
PROC: 0DJD8ZZ Inspection of Lower Intestinal Tract, Via Natural or Artificial Opening Endoscopic (ICD-10-PCS; CPT 45378; principal; 2024-11-17 08:30)
DX: Z12.11 Encounter for screening for malignant neoplasm of colon (principal); Z86.0101 Personal history of adenomatous and serrated colon polyps; D12.3 Benign neoplasm of transverse colon; D12.5 Benign neoplasm of sigmoid colon; K57.30 Diverticulosis of large intestine without perforation or abscess without bleeding; K64.8 Other hemorrhoids; I25.10 Atherosclerotic heart disease of native coronary artery without angina pectoris; Z95.5 Presence of coronary angioplasty implant and graft; Z95.1 Presence of aortocoronary bypass graft; E78.5 Hyperlipidemia, unspecified; G47.33 Obstructive sleep apnea (adult) (pediatric); Z87.442 Personal history of urinary calculi; E11.9 Type 2 diabetes mellitus without complications; Z79.4 Long term (current) use of insulin; Z79.85 Long-term (current) use of injectable non-insulin antidiabetic drugs; Z79.82 Long term (current) use of aspirin; Z79.899 Other long term (current) drug therapy; Z99.89 Dependence on other enabling machines and devices
CPT/HCPCS: 45385; 82947; 88305; J0330; J2003; J2704

== ENCOUNTER 2025-02-27 07:22 | Outpatient (REF) | payer MEDICARE, SELFPAY ==
--- OUTSIDE RECORDS SUMMARY | 2024-11-17 04:30 | XMS_ITS ---
Author Organization [facility] Address [address] [place] [address] Care Team Providers Care Web Content Manager Name Role Phone Abhijit (RETIRED) Jairo CARMICHAEL Primary Care Provide Manjinder Monae [phone] REASON FOR VISIT screening,hx polyps Encounters Encounter Location Date Provider Diagnosis [facility] [place] [address] [place] [phone] 11/17/2024 Manjinder Mckeon Colon cancer scree david [...] Notes * HUY ORONADOB:1955 (70 yo M)Acc No.[id number]:11/17/2024 COLON WITH MAC Patient: HUY BENAVIDEZ Provider: Ed Mckeon MD :1955 A ge:69 Y S ex:Male Date:11/17/2024 Address: [address] [place], [id number] Pcp:Jairo Lacey (RETIRED )MD Subjective: * Chief Complaints: * 1 . Screening,hx polyps. * Medical History: Objective: * Vitals: Assessment: * Assessment: 1. C olon cancer screening - Z12.11 (Primary) 2 . P ersonal history of adenomatous and serrated colon polyps - Z86.0101 3 . C olon polyps - K63.5 ? 4 . D iverticulosis of large intestine without perforation or abscess without bleeding - K57.30 Plan: * Treatment: * Procedure Codes: 4 5385 LESION REMOVAL COLONOSCOPY, Modifiers: PT , 0529F INTRVL 3+YRS PTS CLNSCP DOCD, 0528F RCMND FLW-UP 10 YRS DOCD, Modifiers: 1P * * The named appointment provid er may or may not be the originator of this progress note, and it is not deemed complete until electronically signed by the appointment provider. Sign off status: Pending * Provider: Ed Mckeon MD Date: 0 11/17/2024 Generated for Yoly byrd/Lelo/Kelinitting on: 0 2025 07:24 AM EDT
--- OUTSIDE RECORDS SUMMARY | 2025-02-27 07:24 | XMS_ITS | Patient Health Record ---
Author Organization [facility] Address [address] [place] [address] Care Team Providers Care Documentation Specialist Name Role Phone Abhijit (RETIRED) Jairo CARMICHAEL Primary Care Provide r Unavailable Manjinder Mckeon Unavailable [phone] Allergies No Known Allergies Results Component Value Reference Range Notes Glucose, Whole Blood Reviewed date:11/18/2024 09:37:41 AM Interpretation: Performing Lab:[facility], [address] [place] [id number] Notes/Report: Glucose, Whole Blood 103 60-115 mg/dL METER # : [id number] Pathology (Not yet reviewed by provider) Interpretation: Performing Lab:[address] [id number] Notes/Report: Reason For Referral No Information Medications Medication [...] glipiZIDE 5 MG TAKE 2 TABLETS BY [facility] TWICE A DAY Orally Once a day Active Immunizations Vaccine Route Administration Date Status Comme nts Influenza Unknown 03/27/2019 Administered Problems Problem Type SNOMED Code ICD Code Onset Dates Problem Status W/U Status Risk Notes Problem 753555639 Encounter for screening for malignant neoplasm of colon (Z12.11) Active confirmed Problem 349461497 Long-term use of aspirin therapy (Z79.82) Active confirmed Problem 906636130 Hx of adenomatous colonic polyps (Z86.010) Active confirmed Problem 208457213920486 Pre-procedural examination (Z01.818) Active confirmed Problem 91589757 Hypertension, unspecified type (I10) Active confirmed Vital Signs Blood pressure diastolic 11 mm Hg 08/12/2024 Height 68 in 08/12/2024 Blood pressure systolic 111 mm Hg 08/12/2024 Weight 240 lbs 08/12/2024 BMI 36.49 kg/m2 08/12/2024 Procedures Procedure Date Ordered Date Performed Result Body Sit e COLONOSCOPY 08/12/2024 N/A Encounters Encounter Location Date Provider Diagnosis [facility] Outpatient [address] [place] [id number] 11/17/2024 Manjinder Mckeon Colon cancer screeni ng Z12.11 ; Personal history of adenomatous and serrated colon polyps Z86.0101 ; Colon polyps K63.5 and Diverticulosis of large intestine without perforation or abscess without bleeding K57.30 [facility] [address] [place] [address] 08/12/2024 Manjinder Mckeon Colon cancer screeni ng Z12.11 ; Pre-procedural examination Z01.818 ; Hx of adenomatous colonic polyps Z86.010 and Long-term use of aspirin therapy Z79.82 Assessments Encounter Date Diagnosis (ICD Code) Assessment Notes Treatment Notes Treatment Clinical Notes Section Notes 11/17/2024 Colon cancer screening (ICD-10 - Z12.11) 11/17/2024 Personal history of adenomatous and serrated colon polyps (ICD-10 - Z86.0101) 08/12/2024 Colon cancer screening (ICD-10 - Z12.11) Need clearance from [facility] in regard to the colonoscopy and anesthsiea, as well as in regard to the aspirin and Clopidogrel Overall, Hyu appears well. He seems to have recovered [...] also obtain a clearance letter from his strand forming machine operator. Huy and his were comfortable with this [...] also obtain a clearance letter from his strand forming machine operator. Huy and his were comfortable with this plan. Thank you again for allowing me to participate in Huy's care. I shall continue to k overall eep you advised of his progress. 11/17/2024 Colon polyps (ICD-10 - K63.5) 08/12/2024 Hx of adenomatous colonic polyps (ICD-10 [...] also obtain a clearance letter from his strand forming machine operator. Huy and his were comfortable with this plan. Thank you again for allowing me to participate in Huy's care. I shall continue to k overall eep you advised of his progress. 11/17/2024 Diverticulosis of large intestine without perforation or abscess without bleeding (ICD-10 - K57.30) 08/12/2024 Long-term use of aspirin therapy (ICD-10 [...] also obtain a clearance letter from his strand forming machine operator. Huy and his were comfortable with this plan. Thank you again for allowing me to participate in Huy's care. I shall continue to k overall eep you advised of his progress. Plan Of Treatment Pending Test Test Name Order Date COLONOSCOPY 08/12/2024 Pathology 11/17/2024 Future Test Test Name Order Date COLONOSCOPY 10/15/2013 COLONOSCOPY 04/04/2019 Insurance Providers Payer Name Payer Address Payer Phone Subscriber Number Group Number Insured Name Patient Relationship to Insured Coverage Start Date Coverage End Date [facility] [address] [place] [address] [id number] HUY ORONA Self - patient is the insured Medical (General) History Medical History History ICD Code Colonoscopy 09/20/2007--1 tub ular adenoma removed along with several hyperplastic polyps IDDM Diverticulosis Denies CVA,Lung disease,renal disease Kidney stones--ESWL, stents CAD--1 stent placed in 06/2009-no problem s since then Hyperlipidemia Sleep apnea--uses a CPAP machine Colonoscopy in 12/2013 with a small tubul ar adenoma removed [place] 09/2023---had a 4V CABG Colonoscopy in 06/2019 with a tubular cata noma removed Surgical History Surgery Date(Month/Year) CABG-4V at [facility] 09/2023 Oral surgery
--- OUTSIDE RECORDS SUMMARY | 2025-02-27 07:24 | XMS_ITS | Clinical Summary ---
Author Organization [facility] [employer] [facility] Address [address] [place] [address] Phone Care Team Providers Care Restaurant Bartender Name Role Phone Jairo Lacey MD Primary Care Provider [phone] Allergies No known active allergies Medications aspirin [...] and medication compliance. CAD (coronary artery disease), [place] coronary a rtery 11/13/2023 Overview (08/03/2024): October [...] 11/13/2023 NSTEMI (non-ST elevated myoc ardial infarction) ([facility] V24, [facility] V28) 11/13/2023 S/P CABG x 4 11/13/2023 Encounters Date Type Department Care Team Description 01/28/2025 Telephone [facility] [address] [place] [address] Meir Rodriguez NP from Last 3 Months Medical History Medical History Date Comments ION (acute kidney injury) ([facility] V24) DX:ION (acute kidney injury) ([facility]) Diabetes mellitus ([facility] V24, [facility] V28) DX:Diabetes mellitus (HCC) CELI treated with [...] (2 of 2 - PPSV23) 03/23/2020 03/23/2019 Abdominal Aortic Aneurysm (AAA) Screen 03/12/2024 Cholesterol Screening (Lipid Panel) 03/12/2024 Colorectal Cancer Screening: Colonoscopy 03/12/2024 Falls Risk Assessment 03/12/2024 Hepatitis C Screening 03/12/2024 Hypertension/CHF/CAD Annual BMP Blood Test 03/12/2024 Medicare Annual Wellness Visit 03/12/2024 Social Influencers of Health Screening 03/12/2024 Depression Screening 06/04/2024 COVID-19 Vaccine ( season) 2025 05/26/2021, 09/21/2020, 08/31/2020 Influenza Vaccine (#1) 2025 2, 02/06/2021, 03/23/2019, Additional history exists RSV Immunization [...] patient's age to complete [place] [id number] [employer] - [place] MEDIC[place] ADVANTAGE Care Teams Restaurant Bartender Relationship Specialty Start Date End Date Jairo Lacey MD [address] [place] [address] Dr Christa [place] PCP - General 09/26/23
[2025-02-27 08:34] LABS: Hemoglobin A1C 256.9170 umol/L; Total Hemoglobin (HGBA1C) 3582.0475 umol/L
== END 2025-02-27 07:23 | disposition home or self-care (01) ==
LOC: HO.LAB 07:22
PROVIDERS: PCP Physician Assistant; Visit Provider Physician Assistant
DX: E11.9 Type 2 diabetes mellitus without complications (principal)
CPT/HCPCS: 36415; 83036

== ENCOUNTER 2025-03-03 14:09 | Outpatient (AMB) | payer MEDICARE, SELFPAY ==
--- OUTSIDE RECORDS SUMMARY | 2024-11-17 04:30 | XMS_ITS ---
Author Organization [facility] Address [address] [place] [address] Care Team Providers Care Controller Instructor Name Role Phone Abhijit (RETIRED) Jairo CARMICHAEL Primary Care Provide r Manjinder Abreu [phone] REASON FOR VISIT screening,hx polyps Encounters Encounter Location Date Provider Diagnosis [facility] Outpatient [address] [place] [phone] 11/17/2024 Manjinder Mckeon Colon cancer scree david [...] Notes * HUY ORONADOB:1955 (70 yo M)Acc No.[id number]:11/17/2024 COLON WITH MAC Patient: HUY BENAVIDEZ Provider: Ed Mckeon MD :1955 A ge:69 Y S ex:Male Date:11/17/2024 Address: [address] [place], [id number] Pcp:Jairo Lacey (RETIRED )MD Subjective: * Chief [...] 11/17/2024 Generated for Yoly byrd/Lelo/Kelinitting on: 0 03/03/2025 03:31 PM EDT
--- NOTE | 2025-03-03 14:14 | A.OFFPC_ITS ---
Vital Signs 03/03/25 14:26 Height 5 ft 9 in Weight 104.326 kg BMI 34.0 BP 130/70 Respiration 16 Pulse 61 Pulse Source Pulse Oximeter Temp 97.3 F Temp Source Temporal Artery Scan Pulse Oximetry (%) 96 Oxygen Delivery Method Room Air Intake Visit Reasons: 3 mo f/u - see comments Bundle Breaker Required: No Accompanied by: Spouse Allergies No Known Allergies (No Known Allergies*) Allergy (Verified 03/03/25 14:14) Tobacco use date assessed: 03/03/25 Fall risk assessment: No Falls in past year Last assessed Fall Risk: 03/03/25 Dental Screening Dental Screen Date: 03/03/25 Did you have a dental visit in the last 12 months?: Yes Did you have a dental problem in the last 6 months where you did not have access to dental care?: No Was dental information given to patient?: No HPI HPI Comments History of Present Illness Details 69-year-old male with history of type 2 diabetes, hypertension, hyperlipidemia, CELI, CAD s/p CABG x4 09/2023 presents to the office today for management of chronic conditions. Accompanied by his Type 2 diabetes-A1c slightly improved 8.7%. On glipizide, Basaglar, tirzepatide 7.5 mg weekly. Reports compliance with diabetic diet. No regular exercise HLD/CAD/Hypertension/ischemic cardiomyopathy-blood pressure 130/70. On lisinopril 40 mg, hydrochlorothiazide 25 mg daily, hydralazine 50 mg 3 times daily, Lasix 20 mg daily, carvedilol 12.5 mg twice daily. On DAPT. Atorvastatin 80 mg daily. Last LDL 49. No recent chest pain. Dr Horvath, [facility] CELI- CPAP Concerns: None Health Maintenance: Colonoscopy 11/26, tubular adenoma, [address] Mckeon ROS: See HPI EXAM: Constitutional - Awake and Alert, No apparent distress Cardiovascular - S1S2, RRR, 2+ RLE, 1+LLE edema Respiratory - Normal lung expansion, Normal respiratory effort, No respiratory distress, CTA bilaterally Extremities - no calf tenderness bilaterally, no swelling Skin - Warm/Dry. Venous stasis dermatitis Neurological - Alert & oriented x3 Psychological - Appropriate affect PFSH Medical History Hx of renal calculi History of diverticulosis CELI on CPAP Sleep apnea Hyperlipemia HTN (hypertension) Diabetes mellitus CAD (coronary artery disease) Surgical History Hx of lithotripsy S/P CABG (coronary artery bypass graft) (09/2023) History of colonoscopy (~11/17/24) H/O heart artery stent Social History Housing: House Patient Tobacco Use Status: Former Tobacco user e-Cigarette/Vaping Use: Never Used service: No Current occupational status: retired Cognitive needs: No Hearing needs: No Vision needs: Yes (Reading glasses) Questionnaire PHQ-9 Over the last 2 weeks, how often have you been bothered by any of the following problems? 1. Little interest or pleasure in doing things: not at all 2. Feeling down, depressed, or hopeless: not at all 3. Trouble falling or staying asleep, or sleeping too much: not at all 4. Feeling tired or having little energy: not at all 5. Poor appetite or overeating: not at all 6. Feeling bad about yourself - or that you are a failure or have let yourself or your family down: not at all 7. Trouble concentrating on things, such as reading the newspaper or watching television: not at all 8. Moving or speaking so slowly that other people could have noticed. Or the opposite - being so fidgety or restless that you have been moving around a lot more than usual: not at all 9. Thoughts that you would be better off or of hurting yourself in some way: not at all Total score: 0 Source: Developed by Drs. Manjinder Russell, Kamini Melgar, Kb Patton and colleagues, with an educational ryder from [employer]. Thrive Questionnaire Date Thrive assessed: 03/03/25 I am a: Patient What is your living situation today?: I have a steady place to live Within the past 12 months, did the food you bought not last and you didn't have the money to get more?: Never true Within the past 12 months, did you worry whether your food would run out before you got money to buy more?: Never true Do you have trouble paying for medicines?: No Do you have trouble getting transportation to medical appointments?: No Do you have trouble paying your heating and electricity bill?: No Do you have trouble taking care of your child, family member or friend?: No Do you have trouble with day-to-day activities such as bathing, preparing meals, shopping, managing finances, etc.?: No Are you currently unemployed and looking for a job?: No Are you interested in more education?: No Please select the resources that you would like help with: None THRIVE Score: 0 AUDIT C Alcohol Use Questionnaire (AUDIT-C) 1. How often do you have a drink containing alcohol?: Never Total Score: 0 LORI-7 AMB Questionnaire LORI-7 Date LORI - 7 assessed: 03/03/25 Feeling nervous, anxious, or on edge: 0 = Not at all Not being able to stop or control worryin = Not at all Worrying too much about different things: 0 = Not at all Trouble relaxin = Not at all Being so restless that it is hard to sit still: 0 = Not at all Becoming easily annoyed or irritable: 0 = Not at all Feeling afraid as if something awful might happen: 0 = Not at all Total LORI-7 score (0-4 normal; 5-9 mild; 10-14 moderate; 15-21 severe): 0 Source: Developed by Drs. Manjinder Russell, Kamini Melgar, Kb Patton and colleagues, with an educational ryder from [employer]. Physical exam (Primary Care) Vital Signs: Last Vital Signs Temp 97.3 F 03/03/25 14:26 Pulse 61 03/03/25 14:26 Resp 16 03/03/25 14:26 BP 130/70 03/03/25 14:26 Pulse Ox 96 03/03/25 14:26 Oxygen Delivery Method Room Air 03/03/25 14:26 BMI result Body Mass Index 34.0 Tobacco/Smoking Status: Tobacco use Status Tobacco use date assessed 03/03/25 03/03/25 14:30 Patient Tobacco Use Status Former Tobacco user 03/03/25 14:17 e-Cigarette/Vaping Use Never Used 03/03/25 14:30 PHQ-9: PHQ-9 Score PHQ-9: Total score 0 03/03/25 14:33 Thrive Assessment: Date of Thrive Assessment Date Thrive assessed 03/03/25 03/03/25 14:30 Coding Level of Care Code Est Pt Level 4 (84499) Complex EM visit Add On G2211 Diagnoses HTN (hypertension) I10 Diabetes mellitus E11.9 Hyperlipemia E78.5 Assessment & Plan Assessment & Plan (1) HTN (hypertension): Code(s): I10 - Essential (primary) hypertension Category: Medical Plan: Controlled. Continue hydralazine 75 mg t.i.d., Coreg, lisinopril, hydrochlorothiazide and carvedilol. Low-sodium diet. (2) Diabetes mellitus: Code(s): E11.9 - Type 2 diabetes mellitus without complications Category: Medical Plan: Uncontrolled. Change Basaglar to 50 units twice daily. Continue tirzepatide 7.5 mg weekly as well as glipizide. Continue diabetic diet. Annual eye exams. Efforts towards weight loss (3) Hyperlipemia: Code(s): E78.5 - Hyperlipidemia, unspecified Category: Medical Plan: At goal. Continue atorvastatin 80 mg daily. Diet low in saturated fat and highly processed foods. Plan Follow-up in the office in 3 months. Labs to be completed prior to visit. Reviewed labs today. Continue medications as ordered. Orders: Orders Prostate Specific Antigen 3 Months Z12.5 - Encounter for screening for malignant neoplasm of prostate Basic Metabolic Panel 3 Months D36.9 - Benign neoplasm, unspecified site, E11.9 - Type 2 diabetes mellitus without complications, E66.9 - Obesity, unspecified, E78.5 - Hyperlipidemia, unspecified, I10 - Essential (primary) hypertension Hemoglobin A1c 3 Months D36.9 - Benign neoplasm, unspecified site, E11.9 - Type 2 diabetes mellitus without complications, E66.9 - Obesity, unspecified, E78.5 - Hyperlipidemia, unspecified, I10 - Essential (primary) hypertension Lipid Panel 3 Months D36.9 - Benign neoplasm, unspecified site, E11.9 - Type 2 diabetes mellitus without complications, E66.9 - Obesity, unspecified, E78.5 - Hyperlipidemia, unspecified, I10 - Essential (primary) hypertension Liver Panel 3 Months D36.9 - Benign neoplasm, unspecified site, E11.9 - Type 2 diabetes mellitus without complications, E66.9 - Obesity, unspecified, E78.5 - Hyperlipidemia, unspecified, I10 - Essential (primary) hypertension Microalbumin, Random (w Creat) 3 Months D36.9 - Benign neoplasm, unspecified site, E11.9 - Type 2 diabetes mellitus without complications, E66.9 - Obesity, unspecified, E78.5 - Hyperlipidemia, unspecified, I10 - Essential (primary) hypertension Medications: Changed From insulin glargine (Basaglar KwikPen U-100 Insulin) 100 units subcut QAM 30 mL 2RF To insulin glargine (Basaglar KwikPen U-100 Insulin) 50 units (0.5 mL) subcut BID 30 mL 2RF
[2025-03-03 14:26] VITALS: BP 130/70; PULSE 61; RESP 16; TEMP 36.3; O2SAT 96; BMI 34.0
--- OUTSIDE RECORDS SUMMARY | 2025-03-03 15:32 | XMS_ITS | Clinical Summary ---
Author Organization [facility] [employer] [facility] Address [address] [place] [address] Phone Care Team Providers Care Coding Compliance Manager Name Role Phone Jairo Lacey MD Primary Care Provider [phone] Allergies No known active allergies Medications aspirin [...] and medication compliance. CAD (coronary artery disease), [place] coronary a rtery 11/13/2023 Overview (08/03/2024): October [...] 11/13/2023 NSTEMI (non-ST elevated myoc ardial infarction) ([facility] V24, [facility] V28) 11/13/2023 S/P CABG x 4 11/13/2023 Encounters Date Type Department Care Team Description 01/28/2025 Telephone [facility] [address] [place] [address] Meir Rodriguez NP from Last 3 Months Medical History Medical History Date Comments ION (acute kidney injury) ([facility] V24) DX:ION (acute kidney injury) ([facility]) Diabetes mellitus ([facility] V24, [facility] V28) DX:Diabetes mellitus (HCC) CELI treated with [...] Health Maintenance Due Date Last Done Comments Colorectal Cancer Screening: Colonoscopy 1955 DTaP,Tdap,and Td Vaccines (1 - Tdap) 02/28/1972 Zoster Vaccines (1 of 2) 2003 Pneumococcal Vaccine: 50+ Years (2 of 2 - PCV20 or PCV21) 03/23/2020 03/23/2019 Abdominal Aortic Aneurysm (AAA) Screen 03/12/2024 Cholesterol Screening (Lipid Panel) 03/12/2024 Falls Risk Assessment 03/12/2024 Hepatitis C [...] complete [place] [id number] [employer] [place]IC[place] AD[place]ANTAGE Care Teams Coding Compliance Manager Relationship Specialty Start Date End Date Jairo Lacey MD [address] [place] [address] Dr Christa [place] PCP - General 09/26/23
--- OUTSIDE RECORDS SUMMARY | 2025-03-03 15:32 | XMS_ITS | Patient Health Record ---
Author Organization [facility] Address [address] [place] [address] Care Team Providers Care Marketing Writer Name Role Phone Abhijit (RETIRED) Jairo CARMICHAEL Primary Care Provide r Unavailable Manjinder Mckeon Unavailable [phone] Allergies No Known Allergies Results Component Value Reference Range Notes Glucose, Whole Blood Reviewed date:11/18/2024 09:37:41 AM Interpretation: Performing Lab:[facility], [address] [place] [phone] Notes/Report: Glucose, Whole Blood 103 60-115 mg/dL METER # : [id number] Pathology (Not yet reviewed by provider) Interpretation: Performing Lab:[address] [phone] Notes/Report: Reason For Referral No Information Medications [...] glipiZIDE 5 MG TAKE 2 TABLETS BY [facility] TWICE A DAY Orally Once a day Active Immunizations Vaccine Route Administration Date Status Comme nts Influenza Unknown 03/27/2019 Administered Problems Problem Type SNOMED Code ICD Code Onset Dates Problem Status W/U Status Risk Notes Problem 907629467 Encounter for screening for malignant neoplasm of colon (Z12.11) Active confirmed Problem 305020207 Long-term use of aspirin therapy (Z79.82) Active confirmed Problem 707431547 Hx of adenomatous colonic polyps (Z86.010) Active confirmed Problem 978621978920197 Pre-procedural examination (Z01.818) Active confirmed Problem 74196788 Hypertension, unspecified type (I10) Active confirmed Vital Signs Blood pressure diastolic 11 mm Hg 08/12/2024 Height 68 in 08/12/2024 Blood pressure systolic 111 mm Hg 08/12/2024 Weight 240 lbs 08/12/2024 BMI 36.49 kg/m2 08/12/2024 Procedures Procedure Date Ordered Date Performed Result Body Sit e COLONOSCOPY 08/12/2024 N/A Encounters Encounter Location Date Provider Diagnosis [facility] [address] [place] [phone] 11/17/2024 Manjinder Mckeon Colon cancer screeni ng Z12.11 ; Personal history of adenomatous and serrated colon polyps Z86.0101 ; Colon polyps K63.5 and Diverticulosis of large intestine without perforation or abscess without bleeding K57.30 [facility] [address] [place] [address] 08/12/2024 Manjinder Mckeon Colon cancer screeni ng [...] screening (ICD-10 - Z12.11) Need clearance from [facility] in regard to the [...] also obtain a clearance letter from his station cashier. Huy and his were comfortable with this [...] also obtain a clearance letter from his station cashier. Huy and his were comfortable with this [...] also obtain a clearance letter from his station cashier. Huy and his were comfortable with this [...] also obtain a clearance letter from his station cashier. Huy and his were comfortable with this [...] Insured Coverage Start Date Coverage End Date [facility] [address] [place] [address] [id number] HUY ORONA Self - patient is the insured Medical (General) History Medical History History ICD Code Colonoscopy 09/20/2007--1 tub ular adenoma removed along with several hyperplastic polyps IDDM Diverticulosis Denies CVA,Lung disease,renal disease Kidney stones--ESWL, stents CAD--1 stent placed in 06/2009-no problem s since then Hyperlipidemia Sleep apnea--uses a CPAP machine Colonoscopy in 12/2013 with a small tubul ar adenoma removed [place] 09/2023---had a 4V CABG Colonoscopy in 06/2019 with a tubular cata noma removed Surgical History Surgery Date(Month/Year) CABG-4V at [facility] 09/2023 Oral surgery
== END 2025-03-03 14:51 | disposition home or self-care (01) ==
LOC: HO.HMCHD 14:09
PROVIDERS: PCP Physician Assistant; Visit Provider Physician Assistant
DX: I10 Essential (primary) hypertension (principal); E11.9 Type 2 diabetes mellitus without complications; E78.5 Hyperlipidemia, unspecified

== ENCOUNTER → 2025-03-03 14:09 | Outpatient (BNVA) | payer MEDICARE, SELFPAY | PROVIDERS: PCP Physician Assistant; Visit Provider Physician Assistant | DX: I10 Essential (primary) hypertension (principal); E11.9 Type 2 diabetes mellitus without complications; E78.5 Hyperlipidemia, unspecified; Z79.4 Long term (current) use of insulin; Z79.899 Other long term (current) drug therapy; Z13.30 Encounter for screening examination for mental health and behavioral disorders, unspecified; Z13.39 Encounter for screening examination for other mental health and behavioral disorders | CPT/HCPCS: 96127; 99212 ==

== ENCOUNTER 2025-05-19 08:11 | Outpatient (REF) | payer MEDICARE, SELFPAY ==
--- OUTSIDE RECORDS SUMMARY | 2024-11-17 03:30 | XMS_ITS ---
Author Organization [facility] Address [address] [place] [address] Care Team Providers Care Prestidigitator Name Role Phone Abhijit (RETIRED) Jairo CARMICHAEL Primary Care Provide r Manjinder Abreu [phone] REASON FOR VISIT screening,hx polyps Encounters Encounter Location Date Provider Diagnosis [facility] Outpatient [address] [place] [phone] 11/17/2024 Manjinder Mckeon Colon cancer scree david [...] Notes * HUY ORONADOB:1955 (70 yo M)Acc No.[id number]:11/17/2024 COLON WITH MAC Patient: HUY BENAVIDEZ Provider: Ed Mckeon MD :1955 A ge:69 Y S ex:Male Date:11/17/2024 Address: [address] [place], [id number] Pcp:Jairo Lacey (RETIRED )MD Subjective: * Chief [...] Modifiers: PT 0529F INTRVL 3+YRS PTS CLNSCP [id number] RCMND FLW-UP 10 YRS DOCD, Modifiers: 1P Billing Information: * Procedure Codes: 94454 LESION REMOVAL COLONOSCOPY. Modifiers: PT 0529F INTRVL 3+YRS PTS CLNSCP DOCD. 0528F RCMND FLW-UP 10 YRS DOCD. Modifiers: 1P * The named appointment provid er may or may not be the originator of this progress note, and it is not deemed complete until electronically signed by the appointment provider. Sign off status: Pending * Provider: Ed cMkeon MD Date: 0 11/17/2024 Generated for Yoly byrd/Lelo/Kelinitting on: 1 07/20/2024 08:27 AM EST
--- OUTSIDE RECORDS SUMMARY | 2025-05-19 08:27 | XMS_ITS | Patient Health Record ---
Author Organization [facility] Address [address] [place] [address] Care Team Providers Care Radiation Physicist Name Role Phone Abhijit (RETIRED) Jairo CARMICHAEL Primary Care Provide r Unavailable Manjinder Mckeon Unavailable [phone] Allergies No Known Allergies Results Component Value Reference Range Flag Notes Pathology (Not yet reviewed by provider) Interpretation: Performing Lab:[facility], [address] [place] [phone] Notes/Report: Glucose, Whole Blood Reviewed date:11/18/2024 09:37:41 AM Interpretation: Performing Lab:[facility], [address] [place] [phone] Notes/Report: Glucose, Whole Blood 103 60-115 mg/dL N [place] TER #: [id number] Reason For Referral No Information Medications Medication SIG (Take, Route, Frequency, Duration) Notes Start Date End Date Status Clopidogrel Bisulfate 75 MG Tablet 1 tablet Orally Once a day Active Carvedilol 12.5 MG Tablet 1 tablet Orall y Twice a day Active Lantus 100 UNIT/ML Solution 90 units Sub cutaneous once a day Active hydroCHLOROthiazide 25 MG Tablet 1 tablet in the morning Orally Once a day Active Atorvastatin Calcium 80 MG Tablet 1 tablet Orally Once a day Active Lisinopril 40 MG Tablet 1 tablet Orally Once a day Active hydrALAZINE HCl 25 MG Tablet 1 tablet wi th food Orally three times a day Active Metoprolol Tartrate 25 MG Tablet Oral; Duration: 90 Days Active Mounjaro 5 MG/0.5ML Solution Auto-injector Subcutaneous; Duration: 28 Days Active Furosemide 20 MG Tablet Oral; Duration: 90 Days Active Aspir-81 81 MG Tablet Delaye d Release 1 tablet Orally Once a day Active glipiZIDE 5 MG Tablet TAKE 2 TABLETS BY MOUTH TWICE A DAY Orally Once a day Active Immunizations Vaccine Route Administration Date Status Comme nts Influenza Unknown 03/27/2019 Administered Social History Social History Additional Details Category Social Info Options Details Miscellaneous: Marital status: 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 Section Notes: Nonsmoker; no sig alcohol Nonsmoker; no sig alcohol Nonsmoker; no sig alcohol Problems Problem Type SNOMED Code ICD Code Onset Dates Problem Status W/U Status Risk Notes Problem Screening for malignant neoplasm of colon (051896884) Encounter for screening for malignant neoplasm of colon (Z12.11) Active confirmed Problem Long-term current use of antiplatelet drug (635587198086107 ) Long-term use of aspirin therapy (Z79.82) Active confirmed Problem History of adenomatous polyp of colon (728311990) Hx of adenomatous colonic polyps (Z86.010) Active confirmed Problem Pre-procedure evaluation check (261154860) Pre-procedural examination (Z01.818) Active confirmed Problem Essential hypertension (98292153) Hypertension, unspecified type (I10) Active confirmed Vital Signs Blood pressure diastolic 11 mm Hg 08/12/2024 Height 68 in 08/12/2024 Blood pressure systolic 111 mm Hg 08/12/2024 Weight 240 lbs 08/12/2024 BMI 36.49 kg/m2 08/12/2024 Procedures Procedure Date Ordered Date Performed Result Body Sit e COLONOSCOPY 08/12/2024 N/A Encounters Encounter Location Date Provider Diagnosis [facility] [address] [place] [phone] 11/17/2024 Manjinder Mckeon Colon cancer screeni ng Z12.11 ; Personal history of adenomatous and serrated colon polyps Z86.0101 ; Colon polyps K63.5 and Diverticulosis of large intestine without perforation or abscess without bleeding K57.30 [facility] [address] [place] [phone] 08/12/2024 Manjinder Mckeon Colon cancer screeni ng Z12.11 ; Pre-procedural examination Z01.818 ; Hx of adenomatous colonic polyps Z86.010 and Long-term use of aspirin therapy Z79.82 [facility] [address] [place] [phone] 11/17/2024 Manjinder Mckeon Assessments Encounter Date Diagnosis (ICD Code) Assessment Notes Treatment Notes Treatment Clinical Notes Section Notes 11/17/2024 Colon cancer screening (ICD-10 - Z12.11) 11/17/2024 Personal history of adenomatous and serrated colon polyps (ICD-10 - Z86.0101) 08/12/2024 Colon cancer screening (ICD-10 - Z12.11) Need clearance from [facility] in regard to the [...] also obtain a clearance letter from his regulator inspector. Huy and his were comfortable with this [...] also obtain a clearance letter from his regulator inspector. Huy and his were comfortable with this [...] also obtain a clearance letter from his regulator inspector. Huy and his were comfortable with this plan. Thank you again for allowing me to participate in Huy's care. I shall continue to k overall eep you advised of his progress. 11/17/2024 Colon polyps (ICD-10 - K63.5) 11/17/2024 [...] also obtain a clearance letter from his regulator inspector. Huy and his were comfortable with this [...] Insured Coverage Start Date Coverage End Date [facility] [address] [place] [address] [id number] HUY ORONA Self - patient is the insured Medical (General) History Medical History History ICD Code Colonoscopy 09/20/2007--1 tub ular adenoma removed along with several hyperplastic polyps IDDM Diverticulosis Denies CVA,Lung disease,renal disease Kidney stones--ESWL, stents CAD--1 stent placed in 06/2009-no problem s since then Hyperlipidemia Sleep apnea--uses a CPAP machine Colonoscopy in 12/2013 with a small tubul ar adenoma removed [place] 09/2023---had a 4V CABG Colonoscopy in 06/2019 with a tubular cata noma removed Surgical History Surgery Date(Month/Year) Oral surgery CABG-4V at [facility] 09/2023
--- OUTSIDE RECORDS SUMMARY | 2025-05-19 08:27 | XMS_ITS | Clinical Summary ---
Author Organization [facility] Address [address] [place] [address] Phone Care Team Providers Care Tray Packer Name Role Phone Jairo Lacey MD Primary Care Provider [phone] Allergies No known active allergies Medications aspirin [...] Tablets by mouth 3 times daily. Active hydroCHLOROthia zide 12.5 mg tablet Take 2 tablets (25 mg total) by mouth 1 (one) time each day. 4 Active insulin glargine (LANTUS) 100 unit/mL injection Inject 90 Units into the skin at bedtime. Active lisinopril (PRINIVIL,ZESTR IL) 40 mg tablet Take 1 tablet (40 mg total) by mouth 1 (one) time each day. 4 Active tirzepatide (Mounjaro) 2.5 mg/0.5 mL injection Inject 0.5 mL (2.5 mg total) under the skin every 7 (seven) days. Active carvediloL (COREG) 12.5 mg tabletIndicatio ns:Hypertension , unspecified type Take 1 tablet (12.5 mg total) by mouth 2 (two) times a day with meals. 180 each 3 5 026 Active clopidogreL (PLAVIX) 75 mg tablet Take 1 tablet (75 mg total) by mouth 1 (one) time each day. 025 Discontinued Active Problems Problem Noted Date Diagnosed Date Hypertension 08/03/2024 Assessment & Plan (05/08/2025 12:41 PM EST): Blood pressure is well-controlled today, continue on current antihypertensive medication regimen. I have reviewed with the patient the importance of a heart healthy lifestyle which includes eating a low-fat low-salt diet, getting regular exercise, maintaining a healthy weight, not smoking, and following up with routine medical care. Assessment & Plan (08/03/2024 7:36 PM EST): [...] and medication compliance. CAD (coronary artery disease), [place] coronary a rtery 11/13/2023 Overview (08/03/2024): October 2011 - angiogram status post ANAI to the LAD September 2023 - repeat angiogram showing multivessel disease status post successful four-vessel coronary artery bypass grafting with GONZALEZ to LAD, radial to OM1, SVG to OM 2 and SVG to PDA Assessment & Plan (05/08/2025 12:41 PM EST): Patient has history of CAD status post four-vessel CABG in 2023. He has been doing well denies any exertional anginal symptoms. He has continued on DAPT with aspirin and Plavix. He has had no bleeding issues. Today we discussed the risks and benefits of prolonged DAPT. He will finish with the Plavix prescription he has and then remain off of it. He will continue on aspirin indefinitely. He also continues on atorvastatin and carvedilol. Goal LDL less than 70. Orders: ECG 12 lead Transthoracic echocardiogram (TTE) complete with PRN contrast, bubble, strain, and 3D order panel; Future perflutren lipid microsphere (DEFINITY) 1.3 mL in sodium chloride 0.9% 8.7 mL injection Assessment & Plan (08/03/2024 7:36 PM EST): [...] management. HLD (hyperlipidemia) 11/13/2023 Assessment & Plan (05/08/2025 12:41 PM EST): Patient continues on atorvastatin 80 mg daily. Patient to have updated lipid panel in several weeks. We discussed that his goal LDL is less than 70 and to have these results sent to the office. Will adjust therapies if he is not in the goal range. Assessment & Plan (08/03/2024 7:36 PM EST): No recent lipid panel on file. Continue with high dose atorvastatin. Hypertensive emergency 11/13/2023 NSTEMI (non-ST elevated myocardial infarction) 0 11/13/2023 S/P CABG x 4 11/13/2023 Encounters Date Type Department Care Team Description 05/08/2025 10:50 AM EST Office Visit [facility] Cardiology [facility] [address] [place] [address] Orly Del Cid NP Coronary artery disease involving [place] coronary artery of [place] heart without angina pectoris (Primary Dx); Ascending aorta dilation (CMS/HCC V24); Hypertension, unspecified type; Hyperlipidemia, unspecified hyperlipidemia type 03/25/2025 Telephone [facility] [address] [place] [address] Sybil Horvath MD from Last 3 Months Medical History Medical History Date Comments ION (acute kidney injury) (CMS/HCC V24) DX:ION (acute kidney injury) (HCC) Diabetes mellitus (CMS/HCC V24, CMS/HCC V28) DX:Diabetes mellitus (HCC) CELI treated with BiPAP DX:CELI tr eated with BiPAP Social History Tobacco Use Types Packs/Day Years Used Date Smoking Tobacco: Former Cigarettes 0 Q uit: 06/04/1976 Smokeless Tobacco: Never Tobacco Cessation:Counseling Given: Not Answered Alcohol Use Standard Drinks/Week Comments Never 0 (1 standard drink = 0.6 oz pur e alcohol) Sex and Gender Information Value Date Recorded Sex Assigned at Not on file Legal Sex Male 1:53 PM EST Gender Identity Not on file Sexual Orientation Not on file Last Filed Vital Signs Vital Sign Reading Time Taken Comments Blood Pressure 116/68 05/08/2025 11:23 AM EST Pulse 58 05/08/2025 11:23 AM EST Temperature - - Respiratory Rate - - Oxygen Saturation 94% 05/08/2025 11:23 AM EST Inhaled Oxygen Concentration - - Weight 100 kg (221 lb) 05/08/2025 11:23 AM EST Height 175.3 cm (5' 9 ) 05/08/2025 11:23 AM EST Body Mass Index 32.64 05/08/2025 11:23 AM EST Plan of Treatment Upcoming Encounters Date Type Department Care Team (Late st Contact Info) Description 07/23/2025 2:30 PM EST Ancillary Procedure [facility] [address] [place] [address] Health Maintenance Due Date Last Done Comments [...] on patient's age to complete this topic Procedures Procedure Name Priority Date/Time Associated Diagnosis Comments ECG 12-LEAD Routine 05/08/2025 11:32 AM EST Coronary artery disease involving [place] coronary artery of [place] heart without angina pectoris from Last 3 Months Results * ECG 12 lead (05/08/2025 11:32 AM EST) Ventricular Rate ECG 58 BPM GEMUSE Atrial Rate 58 BPM GEMUSE P-R Interval 298 ms GEMUSE QRS Duration 168 ms GEMUSE Q-T Interval 514 ms GEMUSE QTc 504 ms GEMUSE P Wave Lavina -108 degrees GEMUSE R Lavina -65 degrees GEMUSE T Lavina 145 degrees GEMUSE ECG Interpretation Sinus rhythm with 1st degree HB Left axis deviation Right bundle branch block Inferior infarct , age undetermined T wave abnormality, consider lateral ischemia Abnormal ECG When compared with ECG of 13-MAR-2017 12:22, Ectopic atrial rhythm has replaced Sinus rhythm Questionable change in QRS duration Confirmed by SYBIL HORVATH ([id number]) on 05/08/2025 12:28:22 PM GEMUSE 05/08/2025 11:3 2 AM EST 05/08/2025 12:28 PM EST us Orly Del Cid NP ECG ORDERABLES Final Result GEMUSE from Last 3 Months Insurance [employer] - [place] MEDICARE ADVANTAGE Care Teams Tray Packer Relationship Specialty Start Date End Date Jairo Lacey MD [address] [place] [address] Dr Christa [place] PCP - General 09/26/23
[2025-05-19 09:44] LABS: Microalbum/Creatinine Ratio Ur 124.8 ug/mg cr (<30)
[2025-05-19 09:47] LABS: Prostate Specific Antigen 1.88 ng/mL (<0.05-4.0)
[2025-05-19 09:48] LABS: Alanine Aminotransferase 64 U/L (0-40); Albumin Level 4.4 g/dL (3.5-5.0); Alkaline Phosphatase 111 U/L (39-117); Anion Gap 10 (12-20); Aspartate Amino Transferase 47 U/L (5-37); Blood Urea Nitrogen 23 mg/dL (9-16); Calcium 9.3 mg/dL (8.4-10.2); Carbon Dioxide 28 mmol/L (22-29); Chloride 107 mmol/L (96-108); Cholesterol 104 mg/dL (<200); Estimated Glomerular Filt Rate > 60; HDL Cholesterol 33 mg/dL (>40); Potassium 3.9 mmol/L (3.3-5.1); Sodium 141 mmol/L (135-145); Total Protein 7.2 g/dL (6.5-8.0); Triglycerides 88 mg/dL (<150)
== END 2025-05-19 08:12 | disposition home or self-care (01) ==
LOC: HO.LAB 08:11
PROVIDERS: PCP Physician Assistant; Visit Provider Physician Assistant
DX: Z12.5 Encounter for screening for malignant neoplasm of prostate (principal); E11.69 Type 2 diabetes mellitus with other specified complication; E78.5 Hyperlipidemia, unspecified; D36.9 Benign neoplasm, unspecified site; E66.9 Obesity, unspecified; I10 Essential (primary) hypertension
CPT/HCPCS: 36415; 80048; 80061; 80076; 82043; 82570; 83036; 84153

== ENCOUNTER 2025-05-25 13:15 | Outpatient (AMB) | payer MEDICARE, SELFPAY ==
--- OUTSIDE RECORDS SUMMARY | 2024-11-17 03:30 | XMS_ITS ---
Author Organization [facility] Address [address] [place] [address] Care Team Providers Care Php Architect Name Role Phone Abhijit (RETIRED) Jairo CARMICHAEL Primary Care Provide r Manjinder Abreu [phone] REASON FOR VISIT screening,hx polyps Encounters Encounter Location Date Provider Diagnosis [facility] Outpatient [address] [place] [id number] 11/17/2024 Manjinder Mckeon Colon cancer scree david Z12.11 ; Personal history of adenomatous and serrated colon polyps Z86.0101 ; Colon polyps K63.5 and Diverticulosis of large intestine without perforation or abscess without bleeding K57.30 Assessments Encounter Date Diagnosis (ICD Code) Assessment Notes Treatment Notes Treatment Clinical Notes Section Notes 11/17/2024 Colon cancer screening (ICD-10 - Z12.11) 11/17/2024 Personal history of adenomatous and serrated colon polyps (ICD-10 - Z86.0101) 11/17/2024 Colon polyps (ICD-10 - K63.5) 11/17/2024 Diverticulosis of large intestine without perforation or abscess without bleeding (ICD-10 - K57.30) Plan Of Treatment No Information Progress Notes * HUY ORONADOB:1955 (70 yo M)Acc No.[id number]:11/17/2024 COLON WITH MAC Patient: HUY BENAVIDEZ Provider: Ed Mckeon MD :1955 A ge:69 Y S ex:Male Date:11/17/2024 Address: [address] [place], [id number] Pcp:Jairo Lacey (RETIRED )MD Subjective: * Chief Complaints: * S creening,hx polyps Assessment: * Assessment: 1. C olon cancer screening - Z12.11 (Primary) 2 . P ersonal history of adenomatous and serrated colon polyps - Z86.0101 3 . C olon polyps - K63.5 ? 4 . D iverticulosis of large intestine without perforation or abscess without bleeding - K57.30 Plan: * Procedure Codes: 4 5385 LESION REMOVAL COLONOSCOPY, Modifiers: PT 0529F INTRVL 3+YRS PTS CLNSCP [id number] RCMND FLW-UP 10 YRS DOCD, Modifiers: 1P Billing Information: * Procedure Codes: 30179 LESION REMOVAL COLONOSCOPY. Modifiers: PT 0529F INTRVL 3+YRS PTS CLNSCP DOCD. 0528F RCMND FLW-UP 10 YRS DOCD. Modifiers: 1P * The named appointment provid er may or may not be the originator of this progress note, and it is not deemed complete until electronically signed by the appointment provider. Sign off status: Pending * Provider: Ed Mckeon MD Date: 0 11/17/2024 Generated for Yoly byrd/Lelo/Kelinitting on: 1 07/26/2024 04:37 PM EST
--- NOTE | 2025-05-25 13:16 | A.OFFPC_ITS ---
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 Required: No Accompanied by: Self / Same As Patient Allergies No Known Allergies (No Known Allergies*) Allergy (Verified 05/25/25 13:17) Medication List - Last Reconciled 05/25/25 by BAKARI Concepcion aspirin (Adult Low Dose Aspirin) 81 mg PO DAILY atorvastatin 80 mg PO DAILY blood pressure monitor As directed blood sugar diagnostic As directed blood sugar diagnostic As directed Twice A Day carvedilol 12.5 mg PO BID clopidogrel 75 mg PO DAILY 90 days furosemide 20 mg PO DAILY 90 days hydralazine 50 mg PO TID hydrochlorothiazide 25 mg PO DAILY insulin glargine (Basaglar KwikPen U-100 Insulin) 50 units (0.5 mL) subcut BID lisinopril 40 mg PO DAILY pen needle, diabetic As directed- daily tirzepatide (Mounjaro) 10 mg (0.5 mL) subcut QWEEK Tobacco use date assessed: 03/03/25 Dental Screening Dental Screen Date: 03/03/25 HPI HPI Comments History of Present Illness Details 69-year-old male with history of type 2 diabetes, hypertension, hyperlipidemia, CELI, CAD s/p CABG x4 09/2023 presents to the office today for management of chronic conditions. Accompanied by his , Tori Type 2 diabetes-A1c improved to 7.7%. On glipizide, Basaglar, tirzepatide 7.5 mg weekly. Reports compliance with diabetic diet. No regular exercise. No hypoglycemia 7.7% no lows needs new glucometer lantus HLD/CAD/Hypertension/ischemic cardiomyopathy-blood pressure 136/60. On lisinopril 40 mg, hydrochlorothiazide 25 mg daily, hydralazine 50 mg 3 times daily, Lasix 20 mg daily, carvedilol 12.5 mg twice daily. On DAPT.- one more month and will dc plavix. Atorvastatin 80 mg daily. Last LDL 49. No recent chest pain. Dr Horvath, PVC CELI- CPAP Concerns: None Health Maintenance: Colonoscopy 11/26, tubular adenoma, [address] Mckeon ROS: See HPI EXAM: Constitutional - Awake and Alert, No apparent distress Cardiovascular - S1S2, RRR, 2+ RLE, 1+LLE edema Respiratory - Normal lung expansion, Normal respiratory effort, No respiratory distress, CTA bilaterally Extremities - no calf tenderness bilaterally, no swelling Skin - Warm/Dry. Venous stasis dermatitis Neurological - Alert & oriented x3 Psychological - Appropriate affect PFSH Medical History (Updated 03/03/25 @ 14:47 by BAKARI Concepcion) Tubular adenoma Obesity Hx of renal calculi History of diverticulosis CELI on CPAP Sleep apnea Hyperlipemia HTN (hypertension) Diabetes mellitus CAD (coronary artery disease) Surgical History Hx of lithotripsy S/P CABG (coronary artery bypass graft) (09/2023) History of colonoscopy (~11/17/24) H/O heart artery stent Social History Housing: House Patient Tobacco Use Status: Former Tobacco user e-Cigarette/Vaping Use: Never Used service: No Current occupational status: retired Cognitive needs: No Hearing needs: No Vision needs: Yes (Reading glasses) Questionnaire Thrive Questionnaire Date Thrive assessed: 03/03/25 AUDIT C Alcohol Use Questionnaire (AUDIT-C) 2. How many drinks containing alcohol do you have on a typical day when you are drinking?: 1 or 2 3. How often do you have six or more drinks on one occasion?: Never Total Score: 0 LORI-7 AMB Questionnaire LORI-7 Date LORI - 7 assessed: 03/03/25 Source: Developed by Drs. Manjinder Russell, Kamini Melgar, Kb Patton and colleagues, with an educational ryder from [employer]. Physical exam (Primary Care) Vital Signs: Last Vital Signs Temp 97.2 F 05/25/25 13:20 Pulse 58 05/25/25 13:20 Resp 16 05/25/25 13:20 BP 136/60 05/25/25 13:20 Pulse Ox 99 05/25/25 13:20 Oxygen Delivery Method Room Air 05/25/25 13:20 BMI result Body Mass Index 33.4 Tobacco/Smoking Status: Tobacco use Status Tobacco use date assessed 03/03/25 05/25/25 13:22 Patient Tobacco Use Status Former Tobacco user 05/25/25 13:22 e-Cigarette/Vaping Use Never Used 05/25/25 13:22 Thrive Assessment: Date of Thrive Assessment Date Thrive assessed 03/03/25 05/25/25 13:22 Office Procedures Flu Questionnaire Does the patient have a severe egg allergy?: No Does the patient have severe life threatening allergies?: No Does the patient have a fever or illness today?: No Has the patient ever had Guillain-Rocky Top Syndrome?: No Has the patient ever had any past reaction to a flu shot?: No Immunizations Fluzone High-Dose (PF) 180 mcg/0.5 mL intramuscular syringe Performing Provider: BAKARI Concepcion Performing Location: [facility] Adult Primary Care-10 HD Administered by: LENNY Patrick on 05/25/25 13:49 Dose Route Admin Location Dispensed Lot Number Expiration Date NDC Boxing Trainer 0.5 mL IM Left Deltoid 0.5 mL [id number] 12/01/25 33685-644-26 [employer]AN[employer] Total Dispensed Waste 0.5 mL 0 % VIS Given Date VIS Provided VIS Publication Date 05/25/25 Single Vaccine 24 Eligibility Eligibility Date Funding Source Not [facility] Eligible 05/25/25 Private Coding Level of Care Code Est Pt Level 4 (16862) Add On Problem Visit Only Diagnoses HTN (hypertension) I10 Diabetes mellitus E11.9 Hyperlipemia E78.5 Assessment & Plan Assessment & Plan (1) HTN (hypertension): Code(s): I10 - Essential (primary) hypertension Category: Medical Plan: Controlled. Continue hydralazine 75 mg t.i.d., Coreg, lisinopril, hydrochlorothiazide and carvedilol. Low-sodium diet. (2) Diabetes mellitus: Code(s): E11.9 - Type 2 diabetes mellitus without complications Category: Medical Plan: Improved and reasonably controlled for age. Discontinue glipizide, increase tirzepatide to 10 mg weekly. Change Basaglar to Tresiba. Continue diabetic diet, annual eye exams and efforts towards weight loss (3) Hyperlipemia: Code(s): E78.5 - Hyperlipidemia, unspecified Category: Medical Plan: At goal. Continue atorvastatin 80 mg daily. Diet low in saturated fat and highly processed foods. Plan Follow-up in the office in 3 months. Labs to be completed prior to visit. Reviewed labs today. Continue medications as ordered. Flu vaccine administered in the office Orders: Orders Influenza 4311-5610 High Dose Immunization Today Z23 - Encounter for immunization Medications: New blood sugar diagnostic (FreeStyle Precision Dann Strips) Check glucose levels twice daily 200 ea 1RF E11.9 - Type 2 diabetes mellitus without complications insulin degludec (Tresiba FlexTouch U-100 insulin) 30 units (0.3 mL) subcut DAILY 45 mL 0RF tirzepatide (Mounjaro) 10 mg (0.5 mL) subcut QWEEK 2 mL 0RF E11.9 - Type 2 diabetes mellitus without complications, E66.9 - Obesity, unspecified, G47.33 - Obstructive sleep apnea (adult) (pediatric) blood-glucose meter (FreeStyle Precision Dann Meter) Check glucose levels twice daily 1 ea 0RF E11.9 - Type 2 diabetes mellitus without complications lancets (FreeStyle Lancets) Check fasting glucose twice daily 200 ea 0RF E11.9 - Type 2 diabetes mellitus without complications Discontinued glipizide Discontinued Reason: Doctor's Order 5 mg PO BID 180 tabs 1RF tirzepatide (Mounjaro) Discontinued Reason: Doctor's Order 7.5 mg (0.5 mL) subcut QWEEK 2 mL 2RF insulin glargine (Basaglar KwikPen U-100 Insulin) Discontinued Reason: Doctor's Order 50 units (0.5 mL) subcut BID 30 mL 2RF
[2025-05-25 13:20] VITALS: BP 136/60; PULSE 58; RESP 16; TEMP 36.2; O2SAT 99; BMI 33.4
--- OUTSIDE RECORDS SUMMARY | 2025-05-25 16:38 | XMS_ITS | Clinical Summary ---
Author Organization [facility] Address [address] [place] [address] Phone Care Team Providers Care Hospitality Recruiter Name Role Phone Jairo Lacey MD Primary Care Provider [phone] Allergies No known active allergies Medications aspirin [...] and medication compliance. CAD (coronary artery disease), kar[place] coronary a rtery 11/13/2023 Overview (08/03/2024): October [...] Description 05/08/2025 10:50 AM EST Office Visit [facility] [address] [place] [address] Orly Del Cid NP Coronary artery disease involving karuk coronary artery of karuk heart without angina pectoris (Primary Dx); Ascending aorta dilation (CMS/HCC V24); Hypertension, unspecified type; Hyperlipidemia, unspecified hyperlipidemia type 03/25/2025 Telephone [facility] [address] [place] [address] Sybil Horvath MD from Last [...] Description 07/23/2025 2:30 PM EST Ancillary Procedure [facility] [address] [place] [address] Health Maintenance Due Date Last [...] 11:32 AM EST Coronary artery disease involving karuk coronary artery of karuk heart without angina pectoris from Last 3 Months Results * ECG 12 lead (05/08/2025 11:32 AM EST) Ventricular Rate ECG 58 BPM GEMUSE Atrial Rate 58 BPM GEMUSE P-R Interval 298 ms GEMUSE QRS Duration 168 ms GEMUSE Q-T Interval 514 ms GEMUSE QTc 504 ms GEMUSE P Wave [place] -108 degrees GEMUSE R [place] -65 degrees GEMUSE T [place] 145 degrees GEMUSE ECG Interpretation Sinus rhythm [...] [place] - [place] MEDICARE ADVANT[place] Care Teams Hospitality Recruiter Relationship Specialty Start Date End Date Jairo Lacey MD [address] [place] [address] Dr Christa [place] PCP - General 09/26/23
--- OUTSIDE RECORDS SUMMARY | 2025-05-25 16:38 | XMS_ITS | Patient Health Record ---
Author Organization [facility] Address [address] [place] [address] Care Team Providers Care Train Control Electronic Technician Name Role Phone Abhijit (RETIRED) Jairo CARMICHAEL Primary Care Provide r Unavailable Manjinder Mckeon Unavailable [phone] Allergies No Known Allergies Results Component Value Reference Range Flag Notes Pathology (Not yet reviewed by provider) Interpretation: Performing Lab:[facility], [address] [place] [id number] Notes/Report: Glucose, Whole Blood Reviewed date:11/18/2024 09:37:41 AM Interpretation: Performing Lab:[facility], [address] [place] [id number] Notes/Report: Glucose, Whole Blood 103 60-115 mg/dL N AR TER #: [id number] Reason For Referral No Information Medications Medication [...] Info Options Details Miscellaneous: Marital status: 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 Section Notes: Nonsmoker; no sig alcohol Nonsmoker; no sig alcohol Nonsmoker; no sig alcohol Problems Problem Type SNOMED Code ICD Code Onset Dates Problem Status W/U Status Risk Notes Problem Screening for malignant neoplasm of colon (816099127) Encounter for screening for malignant neoplasm of colon (Z12.11) Active confirmed Problem Long-term current use of antiplatelet drug (962069120688540 ) Long-term use of aspirin therapy (Z79.82) Active confirmed Problem History of adenomatous polyp of colon (645138600) Hx of adenomatous colonic polyps (Z86.010) Active confirmed Problem Pre-procedure evaluation check (347229079) Pre-procedural examination (Z01.818) Active confirmed Problem Essential hypertension (57719399) Hypertension, unspecified type (I10) Active confirmed Vital Signs Blood pressure diastolic 11 mm Hg 08/12/2024 Height 68 in 08/12/2024 Blood pressure systolic 111 mm Hg 08/12/2024 Weight 240 lbs 08/12/2024 BMI 36.49 kg/m2 08/12/2024 Procedures Procedure Date Ordered Date Performed Result Body Sit e COLONOSCOPY 08/12/2024 N/A Encounters Encounter Location Date Provider Diagnosis [facility] [address] [place] [id number] 11/17/2024 Manjinder Mckeon Colon cancer screeni ng Z12.11 ; Personal history of adenomatous and serrated colon polyps Z86.0101 ; Colon polyps K63.5 and Diverticulosis of large intestine without perforation or abscess without bleeding K57.30 [facility] [address] [place] [phone] 08/12/2024 Manjinder Mckeon Colon cancer screeni ng Z12.11 ; Pre-procedural examination Z01.818 ; Hx of adenomatous colonic polyps Z86.010 and Long-term use of aspirin therapy Z79.82 [facility] [address] [place] [phone] 11/17/2024 Manjnider Mckeon Assessments Encounter Date Diagnosis (ICD Code) Assessment Notes Treatment Notes Treatment Clinical Notes Section Notes 11/17/2024 Colon cancer screening (ICD-10 - Z12.11) 11/17/2024 Personal history of adenomatous and serrated colon polyps (ICD-10 - Z86.0101) 08/12/2024 Colon cancer screening (ICD-10 - Z12.11) Need clearance from [facility] in regard to the colonoscopy [...] also obtain a clearance letter from his neurology tech. Huy and his were comfortable with this [...] also obtain a clearance letter from his neurology tech. Huy and his were comfortable with this [...] also obtain a clearance letter from his neurology tech. Huy and his were comfortable with this [...] also obtain a clearance letter from his neurology tech. Huy and his were comfortable with this [...] Insured Coverage Start Date Coverage End Date [employer] [address] [place] [address] [id number] HUY ORONA Self - patient is the insured Medical (General) History Medical History History ICD Code Colonoscopy 09/20/2007--1 tub ular adenoma removed along with several hyperplastic polyps IDDM Diverticulosis Denies CVA,Lung disease,renal disease Kidney stones--ESWL, stents CAD--1 stent placed in 06/2009-no problem s since then Hyperlipidemia Sleep apnea--uses a CPAP machine Colonoscopy in 12/2013 with a small tubul ar adenoma removed [place] 09/2023---had a 4V CABG Colonoscopy in 06/2019 with a tubular cata noma removed Surgical History Surgery Date(Month/Year) Oral surgery CABG-4V at [facility] 09/2023
== END 2025-05-25 13:54 | disposition home or self-care (01) ==
LOC: HO.HMCHD 13:15
PROVIDERS: PCP Physician Assistant; Visit Provider Physician Assistant
DX: I10 Essential (primary) hypertension (principal); E11.9 Type 2 diabetes mellitus without complications; E78.5 Hyperlipidemia, unspecified; Z23 Encounter for immunization

== ENCOUNTER → 2025-05-25 13:15 | Outpatient (BNVA) | payer MEDICARE, SELFPAY | PROVIDERS: PCP Physician Assistant; Visit Provider Physician Assistant | DX: I10 Essential (primary) hypertension (principal); Z23 Encounter for immunization; E11.9 Type 2 diabetes mellitus without complications; E78.5 Hyperlipidemia, unspecified; I25.10 Atherosclerotic heart disease of native coronary artery without angina pectoris; I25.5 Ischemic cardiomyopathy; Z79.84 Long term (current) use of oral hypoglycemic drugs; Z79.899 Other long term (current) drug therapy; Z95.1 Presence of aortocoronary bypass graft; Z99.89 Dependence on other enabling machines and devices | CPT/HCPCS: 90471; 90662; 99212 ==